=== PATIENT | female | born 1965 | race Caucasian/White ===

== ENCOUNTER 2017-09-24 05:05 | Inpatient (IN) | payer BC ==
[2017-09-24] VITALS (17 sets, daily range): BP systolic 110–143
[~2017-09-24] VITALS: Ht 167.6 cm; Wt 48.1 kg
[2017-09-24 05:49] LABS: BILIRUBIN,URINE NEGATIVE (NEGATIVE); CLARITY/URINE CLEAR (CLEAR); COLOR,URINE YELLOW (YELLOW); GLUCOSE,URINE TRACE (NEGATIVE); KETONES,URINE NEGATIVE (NEGATIVE); LEUKOCYTE ESTERASE ,URINE NEGATIVE (NEGATIVE); NITRITE, URINE NEGATIVE (NEGATIVE); PROTEIN URINE TRACE (NEGATIVE); UROBILINOGEN,URINE 0.2 (0.2-1.0)
[2017-09-24 05:50] LABS: BLOOD, URINE TRACE (NEGATIVE)
[2017-09-24 05:54] LABS: BACTERIA,URINE MODERATE /HPF (None Seen); RBC,URINE 0-3 /HPF (0-3); WBC,URINE 0-3 /HPF (0-3)
[2017-09-24 06:12] LABS: BASOPHILS # (AUTO) 0.2 K/uL (0.0-0.2); EOSINOPHILS % (AUTO) 0.6 % (0.0-4.0); LYMPHOCYTES # (AUTO) 0.4 K/uL (1.0-5.5); MEAN CORPUSCULAR HGB CONC 34 % (32-36); MEAN CORPUSCULAR VOLUME 96 fL (79.0-98.0); MONOCYTES # (AUTO) 0.2 K/uL (0.0-1.0); NEUTROPHILS # (AUTO) 5.5 K/uL (1.8-7.7)
[2017-09-24 06:15] LABS: BASOPHILS % (AUTO) 3.8 % (0.0-2.0); HEMATOCRIT 33.8 % (36-48); HEMOGLOBIN 11.4 g/dL (12.0-16.0); LYMPHOCYTES % (AUTO) 6.5 % (20.5-51.5); MEAN CORPUSCULAR HEMOGLOBIN 33 pg (27-31); MONOCYTES % (AUTO) 3.1 % (1.7-9.3); RED BLOOD CELL COUNT(AUTO) 3.51 MIL/uL (4.2-6.2); RED CELL DISTRIBUTION WIDTH 19.9 % (9.0-15.0); WHITE BLOOD COUNT (AUTO) 6.4 K/uL (4.8-10.8)
[2017-09-24 06:21] LABS: CALCIUM 8.9 mg/dL (8.4-11.0); CREATININE 0.22 mg/dL (0.55-1.30); POTASSIUM 3.7 mmol/L (3.5-5.1)
[2017-09-24 06:36] LABS: ALBUMIN 2.6 g/dL (3.4-4.8)
[2017-09-24 06:38] LABS: PLATELET COUNT (AUTO) 89 K/uL (130-430)
[2017-09-24] MEDS ORDERED: ATOV750O4 PEG (07:23)
[2017-09-24] MEDS ORDERED: PANT40SU2 PEG (07:23)
[2017-09-24] MEDS ORDERED: SACC250C3 PEG (07:23)
[2017-09-24] MEDS ORDERED: ENAL5TAB85 PEG (07:23)
[2017-09-24] MEDS ORDERED: SYN75 PEG (07:23)
[2017-09-24] MEDS ORDERED: LACO100T2 PEG (07:23)
[2017-09-24] MEDS ORDERED: [UNRECOGNIZED DRUG - CODE] PEG (07:23)
[2017-09-24] MEDS ORDERED: POTA20PA3 PEG (07:23)
[2017-09-24] MEDS ORDERED: LEVE1000 PEG (07:23)
[2017-09-24] MEDS ORDERED: IPRA3AMP9 INH (07:23)
[2017-09-24] MEDS ORDERED: ACYC200P PEG (07:23)
[2017-09-24] MEDS ORDERED: ONDA4TAB5 PEG (07:23)
[2017-09-24] MEDS ORDERED: NACL 0.9% 1,000 ML IV ONE (07:45)
[2017-09-24] MEDS ORDERED: PIPERACILLIN/TAZO 3.375 GM in NS 50 ML IV ONE (07:45)
[2017-09-24] MEDS ORDERED: PIPERACILLIN/TAZOBACTAM 3.375 GM/VIAL (ZOSYN) IV ONE (08:12)
[2017-09-24] MEDS ORDERED: IOHEXOL 350 mgI/mL, 150 ML INFUS..BTL IV ONE (08:37)
[2017-09-24] MEDS ORDERED: ENALAPRIL MALEATE 5 MG TABLET (VASOTEC) GT SCH (09:00)
[2017-09-24] MEDS ORDERED: PANTOPRAZOLE GRANULES PACKET 40 MG GT SCH (09:00)
[2017-09-24] MEDS ORDERED: LEVOTHYROXINE SODIUM 0.075 MG TABLET GT ONE (09:00)
[2017-09-24] MEDS ORDERED: ACETAMINOPHEN 650 MG/20.3 ML UDC GT PRN (09:15)
[2017-09-24] MEDS: levETIRAcetam 500 MG TABLET GT SCH ×3 (11:06→20:25)
[2017-09-24] MEDS: LACOSAMIDE 100 MG TABLET GT SCH ×2 (11:06→20:25)
[2017-09-24] MEDS: LACTOBACILLUS RHAMNOSUS GG 1 CAP CAPSULE GT SCH ×2 (11:22→20:25)
[2017-09-24] MEDS: POTASSIUM CHLORIDE 10 MEQ in NACL 0.9% 1,000 ML IV SCH ×2 (13:11→23:41)
[2017-09-24] MEDS: IPRATROPIUM/ALBUTEROL SULFATE 3 ML AMPUL.NEB INH SCH ×2 (13:46→19:42)
[2017-09-24] MEDS ORDERED: HYDROCORTISONE SOD SUCC 100 MG/2 ML VIAL IVP ONE (14:45)
[2017-09-24] MEDS ORDERED: GENTAMICIN 120 mg/100 mL NS 100 ML IV ONE (16:00)
[2017-09-24] MEDS: PIPERACILLIN/TAZO 3.375/DEX-IS 50 ML IV SCH (18:00)
[2017-09-24] MEDS: metroNIDAZOLE 500 mg/NS 100 ML IV SCH (19:46)
[2017-09-24] MEDS: NS IV SCH (20:25)
[2017-09-24] MEDS: VORICONAZOLE IV SCH (20:25)
[2017-09-24] MEDS: ENOXAPARIN SODIUM 60 MG/0.6 ML SYRINGE SUBCUT SCH (20:25)
[2017-09-24] MEDS ORDERED: MORPHINE 2 MG/ML INJ. SYRINGE IVP PRN ×2 (22:00)
[2017-09-24] MEDS ORDERED: ONDANSETRON HCL 4 MG/2 ML VIAL IVP PRN (22:00)
[2017-09-24] MEDS: levETIRAcetam 1,000 MG in NS 100 ML IV SCH (22:00)
[2017-09-24] MEDS ORDERED: ENALAPRILAT DIHYDRATE 1.25 MG/ML VIAL IVP PRN (22:00)
[2017-09-24] MEDS ORDERED: MORPHINE 2 MG/ML INJ. SYRINGE ONE (23:24)
[2017-09-25] VITALS (24 sets, daily range): BP systolic 109–147
[2017-09-25] MEDS: PIPERACILLIN/TAZO 3.375/DEX-IS 50 ML IV SCH ×5 (00:26→23:47)
[2017-09-25] MEDS: IPRATROPIUM/ALBUTEROL SULFATE 3 ML AMPUL.NEB INH SCH ×4 (00:46→19:57)
[2017-09-25] MEDS: metroNIDAZOLE 500 mg/NS 100 ML IV SCH ×3 (01:42→16:47)
[2017-09-25] MEDS: levETIRAcetam 1,000 MG in NS 100 ML IV SCH ×3 (05:13→22:47)
[2017-09-25 05:46] LABS: ANION GAP 8 (5-15); CALCIUM 7.5 mg/dL (8.4-11.0); CHLORIDE 102 mmol/L (98-107); GLUCOSE 100 mg/dL (70-99); SODIUM SERUM 133 mmol/L (136-145); UREA NITROGEN, BLOOD 4 mg/dL (8-21)
[2017-09-25 05:50] LABS: BASOPHILS % (AUTO) 0.1 % (0.0-2.0); EOSINOPHILS % (AUTO) 0.7 % (0.0-4.0); HEMATOCRIT 26.7 % (36-48); HEMOGLOBIN 8.9 g/dL (12.0-16.0); LYMPHOCYTES # (AUTO) 0.2 K/uL (1.0-5.5); LYMPHOCYTES % (AUTO) 2.7 % (20.5-51.5); MEAN CORPUSCULAR HEMOGLOBIN 32 pg (27-31); MEAN CORPUSCULAR HGB CONC 33 % (32-36); MEAN CORPUSCULAR VOLUME 97 fL (79.0-98.0); MONOCYTES # (AUTO) 0.2 K/uL (0.0-1.0); MONOCYTES % (AUTO) 3.1 % (1.7-9.3); NEUTROPHILS # (AUTO) 5.6 K/uL (1.8-7.7); NEUTROPHILS % (AUTO) 93.4 % (40.0-70.0); PLATELET COUNT (AUTO) 68 K/uL (130-430); RED BLOOD CELL COUNT(AUTO) 2.77 MIL/uL (4.2-6.2); RED CELL DISTRIBUTION WIDTH 19.7 % (9.0-15.0)
[2017-09-25 05:53] LABS: ALANINE AMINOTRANSFERASE 24 U/L (12-78); ALBUMIN 1.8 g/dL (3.4-4.8); ASPARTATE AMINOTRANSFERASE 15 U/L (10-37); TOTAL BILIRUBIN 0.7 mg/dL (0.0-1.0)
[2017-09-25 05:57] LABS: CREATININE < 0.20 mg/dL (0.55-1.30); GFR AFRICAN AMERICAN 482 mL/min (>90)
[2017-09-25] MEDS ORDERED: LEVOTHYROXINE SODIUM 0.075 MG TABLET GT SCH (07:00)
[2017-09-25] MEDS: PANTOPRAZOLE SODIUM 40 MG/VIAL (PROTONIX) IVP SCH (08:01)
[2017-09-25] MEDS: ENOXAPARIN SODIUM 60 MG/0.6 ML SYRINGE SUBCUT SCH ×2 (08:01→20:54)
[2017-09-25] MEDS ORDERED: LIDOCAINE JECT IV ONE (08:15)
[2017-09-25] MEDS ORDERED: POTASSIUM CHLORIDE IV ONE (08:15)
[2017-09-25] MEDS ORDERED: NS 0.45% IV ONE (08:15)
[2017-09-25] MEDS: ACETAMINOPHEN 650 MG SUPP.RECT RC PRN ×2 (08:32→20:55)
[2017-09-25] MEDS: POTASSIUM CHLORIDE 10 MEQ in NACL 0.9% 1,000 ML IV SCH ×2 (09:46→22:30)
[2017-09-25] MEDS: VORICONAZOLE IV SCH (10:29)
[2017-09-25] MEDS: NS IV SCH (10:29)
[2017-09-25] MEDS: VORICONAZOLE 200 MG in NS 100 ML IV SCH (20:54)
[2017-09-25] MEDS: HYDROCORTISONE SOD SUCC 100 MG/2 ML VIAL IVP SCH (22:48)
[2017-09-26] VITALS (17 sets, daily range): BP systolic 129–158
[2017-09-26] MEDS: IPRATROPIUM/ALBUTEROL SULFATE 3 ML AMPUL.NEB INH SCH ×4 (01:06→21:28)
[2017-09-26] MEDS: metroNIDAZOLE 500 mg/NS 100 ML IV SCH ×3 (01:10→17:28)
[2017-09-26] MEDS: ACETAMINOPHEN 650 MG SUPP.RECT RC PRN ×2 (03:17→10:19)
[2017-09-26] MEDS: levETIRAcetam 1,000 MG in NS 100 ML IV SCH ×3 (05:47→21:56)
[2017-09-26] MEDS: PIPERACILLIN/TAZO 3.375/DEX-IS 50 ML IV SCH ×3 (05:47→17:34)
[2017-09-26] MEDS: HYDROCORTISONE SOD SUCC 100 MG/2 ML VIAL IVP SCH ×2 (06:47→21:58)
[2017-09-26 07:01] LABS: CREATININE 0.22 mg/dL (0.55-1.30)
[2017-09-26 07:07] LABS: EOSINOPHILS % (AUTO) 0.1 % (0.0-4.0); HEMATOCRIT 27.3 % (36-48); HEMOGLOBIN 9.2 g/dL (12.0-16.0); LYMPHOCYTES # (AUTO) 0.1 K/uL (1.0-5.5); LYMPHOCYTES % (AUTO) 2.1 % (20.5-51.5); MEAN CORPUSCULAR HEMOGLOBIN 33 pg (27-31); MEAN CORPUSCULAR HGB CONC 34 % (32-36); MEAN CORPUSCULAR VOLUME 97 fL (79.0-98.0); MONOCYTES # (AUTO) 0.2 K/uL (0.0-1.0); MONOCYTES % (AUTO) 4.1 % (1.7-9.3); NEUTROPHILS # (AUTO) 4.8 K/uL (1.8-7.7); NEUTROPHILS % (AUTO) 93.7 % (40.0-70.0); PLATELET COUNT (AUTO) 65 K/uL (130-430); RED BLOOD CELL COUNT(AUTO) 2.83 MIL/uL (4.2-6.2); RED CELL DISTRIBUTION WIDTH 19.7 % (9.0-15.0); WHITE BLOOD COUNT (AUTO) 5.1 K/uL (4.8-10.8)
[2017-09-26 07:27] LABS: ALBUMIN 1.9 g/dL (3.4-4.8); TOTAL BILIRUBIN 0.8 mg/dL (0.0-1.0)
[2017-09-26 07:53] LABS: POTASSIUM 2.1 mmol/L (3.5-5.1)
[2017-09-26] MEDS: POTASSIUM CHLORIDE 10 MEQ in NACL 0.9% 1,000 ML IV SCH (09:19)
[2017-09-26] MEDS: PANTOPRAZOLE SODIUM 40 MG/VIAL (PROTONIX) IVP SCH (09:20)
[2017-09-26] MEDS: ENOXAPARIN SODIUM 60 MG/0.6 ML SYRINGE SUBCUT SCH ×2 (09:20→21:56)
[2017-09-26] MEDS: VORICONAZOLE 200 MG in NS 100 ML IV SCH ×2 (10:53→21:55)
[2017-09-26] MEDS ORDERED: POTASSIUM CHLORIDE 40 MEQ, MAGNESIUM SULFATE 2 GM in 0.45% NS 250 ML IV ONE (11:00)
[2017-09-26 19:12] LABS: CREATININE 0.24 mg/dL (0.55-1.30)
[2017-09-26 20:01] LABS: POTASSIUM 2.4 mmol/L (3.5-5.1)
[2017-09-26] MEDS ORDERED: POTASSIUM CHLORIDE 40 MEQ, LIDOCAINE JECT 2% PF 100 MG 50 MG in NS 250 ML IV ONE (21:00)
[2017-09-27] MEDS: PIPERACILLIN/TAZO 3.375/DEX-IS 50 ML IV SCH ×4 (00:08→18:51)
[2017-09-27] MEDS: metroNIDAZOLE 500 mg/NS 100 ML IV SCH ×3 (00:43→17:09)
[2017-09-27 00:53] VITALS: BP_SYST 129
[2017-09-27] MEDS: IPRATROPIUM/ALBUTEROL SULFATE 3 ML AMPUL.NEB INH SCH ×3 (02:14→19:56)
[2017-09-27] MEDS: ACETAMINOPHEN 650 MG SUPP.RECT RC PRN (03:37)
[2017-09-27] MEDS: POTASSIUM CHLORIDE 10 MEQ in NACL 0.9% 1,000 ML IV SCH ×2 (03:54→12:12)
[2017-09-27] MEDS: levETIRAcetam 1,000 MG in NS 100 ML IV SCH ×3 (06:31→22:45)
[2017-09-27 07:55] VITALS: BP_SYST 137
[2017-09-27 07:56] LABS: CALCIUM 8.1 mg/dL (8.4-11.0); CREATININE 0.23 mg/dL (0.55-1.30); EOSINOPHILS % (AUTO) 0.1 % (0.0-4.0); HEMATOCRIT 27.6 % (36-48); HEMOGLOBIN 9.1 g/dL (12.0-16.0); LYMPHOCYTES # (AUTO) 0.1 K/uL (1.0-5.5); LYMPHOCYTES % (AUTO) 1.8 % (20.5-51.5); MEAN CORPUSCULAR HEMOGLOBIN 32 pg (27-31); MEAN CORPUSCULAR HGB CONC 33 % (32-36); MEAN CORPUSCULAR VOLUME 95 fL (79.0-98.0); MONOCYTES # (AUTO) 0.2 K/uL (0.0-1.0); MONOCYTES % (AUTO) 3.1 % (1.7-9.3); NEUTROPHILS # (AUTO) 6.2 K/uL (1.8-7.7); PLATELET COUNT (AUTO) 61 K/uL (130-430); RED CELL DISTRIBUTION WIDTH 19.4 % (9.0-15.0); WHITE BLOOD COUNT (AUTO) 6.5 K/uL (4.8-10.8)
[2017-09-27] MEDS: HYDROCORTISONE SOD SUCC 100 MG/2 ML VIAL IVP SCH ×2 (08:46→21:57)
[2017-09-27] MEDS: PANTOPRAZOLE SODIUM 40 MG/VIAL (PROTONIX) IVP SCH (08:46)
[2017-09-27 08:54] LABS: POTASSIUM 2.8 mmol/L (3.5-5.1)
[2017-09-27] MEDS ORDERED: POTASSIUM CHLORIDE 40 MEQ in NS 250 ML IV ONE (09:30)
[2017-09-27] MEDS ORDERED: *TPN PER PHARMACY XX PRN (09:30)
[2017-09-27] MEDS: VORICONAZOLE 200 MG in NS 100 ML IV SCH ×2 (09:42→21:52)
[2017-09-27] MEDS: ENOXAPARIN SODIUM 60 MG/0.6 ML SYRINGE SUBCUT SCH ×2 (09:52→21:57)
[2017-09-27 15:28] VITALS: BP_SYST 137
[2017-09-27] MEDS: FAT EMULSIONS 250 ML IV SCH (17:06)
[2017-09-27 17:22] VITALS: BP_SYST 135
[2017-09-27] MEDS ORDERED: [UNRECOGNIZED DRUG - OTHER] IV SCH ×10 (18:00)
[2017-09-27] MEDS ORDERED: K PHOS IV SCH ×10 (18:00)
[2017-09-27] MEDS ORDERED: SODIUM CHLORIDE IV SCH ×10 (18:00)
[2017-09-27] MEDS ORDERED: TPN CENTRAL IV SCH ×10 (18:00)
[2017-09-27] MEDS ORDERED: POTASSIUM ACETATE IV SCH ×10 (18:00)
[2017-09-28] MEDS: PIPERACILLIN/TAZO 3.375/DEX-IS 50 ML IV SCH ×4 (00:27→18:28)
[2017-09-28 01:49] VITALS: BP_SYST 145
[2017-09-28] MEDS: metroNIDAZOLE 500 mg/NS 100 ML IV SCH ×3 (01:52→17:29)
[2017-09-28] MEDS: IPRATROPIUM/ALBUTEROL SULFATE 3 ML AMPUL.NEB INH SCH ×4 (01:56→19:28)
[2017-09-28] MEDS: levETIRAcetam 1,000 MG in NS 100 ML IV SCH ×3 (05:13→23:50)
[2017-09-28] MEDS ORDERED: DEXTROSE 50% JECT 50 ML DISP.SYRIN IVP PRN (06:30)
[2017-09-28] MEDS ORDERED: INSULIN REGULAR, HUMAN 100 UNITS/ML, 10 ML VIAL (novoLIN R) SUBCUT PRN (06:30)
[2017-09-28 07:31] LABS: EOSINOPHILS % (AUTO) 0.1 % (0.0-4.0); HEMATOCRIT 26.2 % (36-48); HEMOGLOBIN 9.1 g/dL (12.0-16.0); LYMPHOCYTES # (AUTO) 0.2 K/uL (1.0-5.5); LYMPHOCYTES % (AUTO) 4.4 % (20.5-51.5); MEAN CORPUSCULAR HEMOGLOBIN 33 pg (27-31); MEAN CORPUSCULAR HGB CONC 35 % (32-36); MEAN CORPUSCULAR VOLUME 95 fL (79.0-98.0); MONOCYTES # (AUTO) 0.2 K/uL (0.0-1.0); MONOCYTES % (AUTO) 4.8 % (1.7-9.3); NEUTROPHILS # (AUTO) 3.9 K/uL (1.8-7.7); PLATELET COUNT (AUTO) 70 K/uL (130-430); RED BLOOD CELL COUNT(AUTO) 2.77 MIL/uL (4.2-6.2); RED CELL DISTRIBUTION WIDTH 19.4 % (9.0-15.0); WHITE BLOOD COUNT (AUTO) 4.3 K/uL (4.8-10.8)
[2017-09-28 07:40] VITALS: BP_SYST 135
[2017-09-28 08:28] LABS: ALBUMIN 1.9 g/dL (3.4-4.8)
[2017-09-28 08:37] LABS: CALCIUM 8.2 mg/dL (8.4-11.0); CREATININE 0.22 mg/dL (0.55-1.30)
[2017-09-28 08:42] LABS: PHOSPHORUS 1.5 mg/dL (2.7-4.5); TOTAL BILIRUBIN 0.6 mg/dL (0.0-1.0)
[2017-09-28 08:53] LABS: POTASSIUM 1.7 mmol/L (3.5-5.1)
[2017-09-28] MEDS ORDERED: K PHOS IV SCH ×32 (09:38→10:49)
[2017-09-28] MEDS ORDERED: POTASSIUM ACETATE IV SCH ×32 (09:38→10:49)
[2017-09-28] MEDS ORDERED: SODIUM CHLORIDE IV SCH ×32 (09:38→10:49)
[2017-09-28] MEDS ORDERED: [UNRECOGNIZED DRUG - OTHER] IV SCH ×10 (09:38)
[2017-09-28] MEDS ORDERED: TPN CENTRAL IV SCH ×32 (09:38→10:49)
[2017-09-28] MEDS ORDERED: POTASSIUM CHLORIDE 40 MEQ, LIDOCAINE JECT 2% PF 100 MG 50 MG in NS 250 ML IV ONE (10:00)
[2017-09-28] MEDS: PANTOPRAZOLE SODIUM 40 MG/VIAL (PROTONIX) IVP SCH (10:21)
[2017-09-28] MEDS: HYDROCORTISONE SOD SUCC 100 MG/2 ML VIAL IVP SCH ×2 (10:21→21:09)
[2017-09-28] MEDS: VORICONAZOLE 200 MG in NS 100 ML IV SCH ×2 (10:22→21:08)
[2017-09-28] MEDS: ENOXAPARIN SODIUM 60 MG/0.6 ML SYRINGE SUBCUT SCH ×2 (10:23→21:09)
[2017-09-28] MEDS ORDERED: [UNRECOGNIZED DRUG - OTHER] IV SCH ×22 (10:28→10:49)
[2017-09-28] MEDS: INSULIN ASPART 100 UNITS/ML, 10 ML VIAL (NovoLOG) SUBCUT PRN ×2 (11:51→17:26)
[2017-09-28 12:17] VITALS: BP_SYST 127
[2017-09-28] MEDS: POTASSIUM CHLORIDE 10 MEQ in NACL 0.9% 1,000 ML IV SCH (12:23)
[2017-09-28 12:36] LABS: NEUTROPHILS % (AUTO) 90.7 % (40.0-70.0)
[2017-09-28 16:00] VITALS: BP_SYST 144
[2017-09-28] MEDS: FAT EMULSIONS 250 ML IV SCH (17:30)
[2017-09-28] MEDS: [UNRECOGNIZED DRUG - OTHER] IV SCH ×11 (17:31)
[2017-09-28] MEDS: POTASSIUM ACETATE IV SCH ×11 (17:31)
[2017-09-28] MEDS: SODIUM CHLORIDE IV SCH ×11 (17:31)
[2017-09-28] MEDS: TPN CENTRAL IV SCH ×11 (17:31)
[2017-09-28] MEDS: K PHOS IV SCH ×11 (17:31)
[2017-09-28 20:00] VITALS: BP_SYST 148
[2017-09-28 21:33] LABS: CALCIUM 7.8 mg/dL (8.4-11.0); CREATININE 0.4 mg/dL (0.55-1.30)
[2017-09-28 21:36] LABS: POTASSIUM 2.2 mmol/L (3.5-5.1)
[2017-09-28] MEDS ORDERED: POTASSIUM CHLORIDE 40 MEQ, MAGNESIUM SULFATE 2 GM in 0.45% NS 250 ML IV ONE (21:45)
[2017-09-28] MEDS ORDERED: MAGNESIUM SULFATE 50 ML IV ONE (21:57)
[2017-09-28] MEDS ORDERED: KCL 40 mEq in 100 mL (PREMIX) 100 ML IV ONE (21:58)
[2017-09-29] MEDS: INSULIN ASPART 100 UNITS/ML, 10 ML VIAL (NovoLOG) SUBCUT PRN ×4 (00:07→17:47)
[2017-09-29 00:13] VITALS: BP_SYST 154
[2017-09-29] MEDS: PIPERACILLIN/TAZO 3.375/DEX-IS 50 ML IV SCH ×3 (00:55→11:16)
[2017-09-29] MEDS: IPRATROPIUM/ALBUTEROL SULFATE 3 ML AMPUL.NEB INH SCH ×4 (01:56→19:36)
[2017-09-29] MEDS: metroNIDAZOLE 500 mg/NS 100 ML IV SCH ×3 (02:27→16:46)
[2017-09-29 04:00] VITALS: BP_SYST 146
[2017-09-29] MEDS: levETIRAcetam 1,000 MG in NS 100 ML IV SCH ×3 (04:59→23:48)
[2017-09-29 07:10] LABS: BASOPHILS % (AUTO) 0.3 % (0.0-2.0); EOSINOPHILS % (AUTO) 0.3 % (0.0-4.0); HEMOGLOBIN 9.7 g/dL (12.0-16.0); LYMPHOCYTES # (AUTO) 0.2 K/uL (1.0-5.5); LYMPHOCYTES % (AUTO) 4.8 % (20.5-51.5); MEAN CORPUSCULAR HEMOGLOBIN 33 pg (27-31); MEAN CORPUSCULAR HGB CONC 35 % (32-36); MEAN CORPUSCULAR VOLUME 95 fL (79.0-98.0); MONOCYTES # (AUTO) 0.5 K/uL (0.0-1.0); MONOCYTES % (AUTO) 10.1 % (1.7-9.3); NEUTROPHILS # (AUTO) 3.8 K/uL (1.8-7.7); PLATELET COUNT (AUTO) 55 K/uL (130-430); RED BLOOD CELL COUNT(AUTO) 2.95 MIL/uL (4.2-6.2); RED CELL DISTRIBUTION WIDTH 19.2 % (9.0-15.0); WHITE BLOOD COUNT (AUTO) 4.5 K/uL (4.8-10.8)
[2017-09-29 07:53] LABS: CALCIUM 7.6 mg/dL (8.4-11.0); CREATININE 0.21 mg/dL (0.55-1.30)
[2017-09-29 08:00] VITALS: BP_SYST 146
[2017-09-29 08:05] LABS: POTASSIUM 2.9 mmol/L (3.5-5.1)
[2017-09-29] MEDS: PANTOPRAZOLE SODIUM 40 MG/VIAL (PROTONIX) IVP SCH (09:01)
[2017-09-29] MEDS: HYDROCORTISONE SOD SUCC 100 MG/2 ML VIAL IVP SCH ×2 (09:01→23:47)
[2017-09-29] MEDS: VORICONAZOLE 200 MG in NS 100 ML IV SCH ×2 (09:01→23:48)
[2017-09-29] MEDS: ENOXAPARIN SODIUM 60 MG/0.6 ML SYRINGE SUBCUT SCH ×2 (09:01→23:47)
[2017-09-29] MEDS ORDERED: POTASSIUM CHLORIDE 40 MEQ in NS 250 ML IV ONE (11:00)
[2017-09-29 13:38] VITALS: BP_SYST 158
[2017-09-29 13:57] LABS: NEUTROPHILS % (AUTO) 84.5 % (40.0-70.0)
[2017-09-29] MEDS: ENALAPRILAT DIHYDRATE 1.25 MG/ML VIAL IVP PRN ×2 (14:17→18:47)
[2017-09-29 16:42] VITALS: BP_SYST 164
[2017-09-29] MEDS: FAT EMULSIONS 250 ML IV SCH (17:11)
[2017-09-29] MEDS: PIPERACILLIN/TAZOBACTAM 2.25 GM in NS 50 ML IV SCH (17:12)
[2017-09-29] MEDS: K PHOS IV SCH ×11 (17:35)
[2017-09-29] MEDS: SODIUM CHLORIDE IV SCH ×11 (17:35)
[2017-09-29] MEDS: POTASSIUM ACETATE IV SCH ×11 (17:35)
[2017-09-29] MEDS: TPN CENTRAL IV SCH ×11 (17:35)
[2017-09-29] MEDS: [UNRECOGNIZED DRUG - OTHER] IV SCH ×11 (17:35)
[2017-09-29 20:00] VITALS: BP_SYST 149
[2017-09-29 23:34] LABS: CALCIUM 7.7 mg/dL (8.4-11.0); CREATININE 0.2 mg/dL (0.55-1.30)
[2017-09-29 23:55] LABS: POTASSIUM 2.8 mmol/L (3.5-5.1)
[2017-09-30] VITALS (8 sets, daily range): BP systolic 128–165
[2017-09-30] MEDS: metroNIDAZOLE 500 mg/NS 100 ML IV SCH ×3 (00:52→17:11)
[2017-09-30] MEDS: PIPERACILLIN/TAZOBACTAM 2.25 GM in NS 50 ML IV SCH ×4 (00:52→18:19)
[2017-09-30] MEDS: INSULIN ASPART 100 UNITS/ML, 10 ML VIAL (NovoLOG) SUBCUT PRN ×4 (00:54→17:12)
[2017-09-30] MEDS: IPRATROPIUM/ALBUTEROL SULFATE 3 ML AMPUL.NEB INH SCH ×4 (01:38→19:13)
[2017-09-30] MEDS ORDERED: POTASSIUM CHLORIDE 30 MEQ in NS 250 ML IV ONE ×2 (01:45→12:45)
[2017-09-30] MEDS ORDERED: KCL 40 mEq in 100 mL (PREMIX) 100 ML IV ONE (01:52)
[2017-09-30] MEDS: levETIRAcetam 1,000 MG in NS 100 ML IV SCH ×3 (05:10→23:03)
[2017-09-30 08:00] LABS: CALCIUM 7.7 mg/dL (8.4-11.0); CREATININE 0.25 mg/dL (0.55-1.30); POTASSIUM 3.4 mmol/L (3.5-5.1)
[2017-09-30 08:40] LABS: PHOSPHORUS 1.6 mg/dL (2.7-4.5)
[2017-09-30 08:43] LABS: BASOPHILS % (AUTO) 0.4 % (0.0-2.0); EOSINOPHILS % (AUTO) 0.2 % (0.0-4.0); HEMATOCRIT 29.3 % (36-48); HEMOGLOBIN 9.7 g/dL (12.0-16.0); LYMPHOCYTES # (AUTO) 0.3 K/uL (1.0-5.5); LYMPHOCYTES % (AUTO) 4.3 % (20.5-51.5); MEAN CORPUSCULAR HEMOGLOBIN 32 pg (27-31); MEAN CORPUSCULAR HGB CONC 33 % (32-36); MEAN CORPUSCULAR VOLUME 97 fL (79.0-98.0); MONOCYTES # (AUTO) 0.2 K/uL (0.0-1.0); MONOCYTES % (AUTO) 3.4 % (1.7-9.3); NEUTROPHILS # (AUTO) 5.9 K/uL (1.8-7.7); NEUTROPHILS % (AUTO) 91.7 % (40.0-70.0); PLATELET COUNT (AUTO) 52 K/uL (130-430); RED BLOOD CELL COUNT(AUTO) 3.03 MIL/uL (4.2-6.2); RED CELL DISTRIBUTION WIDTH 20.1 % (9.0-15.0); WHITE BLOOD COUNT (AUTO) 6.4 K/uL (4.8-10.8)
[2017-09-30] MEDS: PANTOPRAZOLE SODIUM 40 MG/VIAL (PROTONIX) IVP SCH (09:09)
[2017-09-30] MEDS: HYDROCORTISONE SOD SUCC 100 MG/2 ML VIAL IVP SCH ×2 (09:10→21:55)
[2017-09-30] MEDS: ENOXAPARIN SODIUM 60 MG/0.6 ML SYRINGE SUBCUT SCH ×2 (09:12→21:58)
[2017-09-30] MEDS: VORICONAZOLE 200 MG in NS 100 ML IV SCH ×3 (09:13→21:59)
[2017-09-30] MEDS: ENALAPRILAT DIHYDRATE 1.25 MG/ML VIAL IVP PRN ×2 (09:24→18:44)
[2017-09-30] MEDS ORDERED: IPRATROPIUM/ALBUTEROL SULFATE 3 ML AMPUL.NEB ONE (10:30)
[2017-09-30] MEDS: FAT EMULSIONS 250 ML IV SCH (16:39)
[2017-09-30] MEDS ORDERED: [UNRECOGNIZED DRUG - OTHER] IV SCH ×11 (18:00)
[2017-09-30] MEDS ORDERED: TPN CENTRAL IV SCH ×11 (18:00)
[2017-09-30] MEDS ORDERED: POTASSIUM ACETATE IV SCH ×11 (18:00)
[2017-09-30] MEDS ORDERED: K PHOS IV SCH ×11 (18:00)
[2017-09-30] MEDS ORDERED: SODIUM CHLORIDE IV SCH ×11 (18:00)
[2017-10-01] MEDS: PIPERACILLIN/TAZOBACTAM 2.25 GM in NS 50 ML IV SCH ×3 (00:18→11:02)
[2017-10-01] MEDS: INSULIN ASPART 100 UNITS/ML, 10 ML VIAL (NovoLOG) SUBCUT PRN ×5 (00:21→23:24)
[2017-10-01] MEDS: IPRATROPIUM/ALBUTEROL SULFATE 3 ML AMPUL.NEB INH SCH ×4 (01:08→20:54)
[2017-10-01 01:09] VITALS: BP_SYST 158
[2017-10-01] MEDS: metroNIDAZOLE 500 mg/NS 100 ML IV SCH (01:33)
[2017-10-01 01:35] VITALS: BP_SYST 158
[2017-10-01] MEDS: levETIRAcetam 1,000 MG in NS 100 ML IV SCH ×2 (05:15→14:14)
[2017-10-01] MEDS: ENALAPRILAT DIHYDRATE 1.25 MG/ML VIAL IVP PRN ×2 (06:10→15:08)
[2017-10-01 08:00] VITALS: BP_SYST 146
[2017-10-01 08:31] LABS: EOSINOPHILS % (AUTO) 0.2 % (0.0-4.0); HEMATOCRIT 27.3 % (36-48); HEMOGLOBIN 9.3 g/dL (12.0-16.0); LYMPHOCYTES # (AUTO) 0.3 K/uL (1.0-5.5); LYMPHOCYTES % (AUTO) 4.7 % (20.5-51.5); MEAN CORPUSCULAR HEMOGLOBIN 32 pg (27-31); MEAN CORPUSCULAR HGB CONC 34 % (32-36); MEAN CORPUSCULAR VOLUME 95 fL (79.0-98.0); MONOCYTES # (AUTO) 0.2 K/uL (0.0-1.0); MONOCYTES % (AUTO) 3.8 % (1.7-9.3); NEUTROPHILS # (AUTO) 6.1 K/uL (1.8-7.7); NEUTROPHILS % (AUTO) 91.3 % (40.0-70.0); RED BLOOD CELL COUNT(AUTO) 2.87 MIL/uL (4.2-6.2); RED CELL DISTRIBUTION WIDTH 19.5 % (9.0-15.0); WHITE BLOOD COUNT (AUTO) 6.6 K/uL (4.8-10.8)
[2017-10-01] MEDS: HYDROCORTISONE SOD SUCC 100 MG/2 ML VIAL IVP SCH ×2 (08:45→23:17)
[2017-10-01] MEDS: ENOXAPARIN SODIUM 60 MG/0.6 ML SYRINGE SUBCUT SCH ×2 (08:46→23:18)
[2017-10-01] MEDS: PANTOPRAZOLE SODIUM 40 MG/VIAL (PROTONIX) IVP SCH (08:46)
[2017-10-01] MEDS: VORICONAZOLE 200 MG in NS 100 ML IV SCH (08:47)
[2017-10-01 09:32] LABS: PLATELET COUNT (AUTO) 39 K/uL (130-430)
[2017-10-01 11:17] LABS: ALBUMIN 1.8 g/dL (3.4-4.8); BILIRUBIN,DIRECT 0.1 mg/dL (0.0-0.3); CALCIUM 8.1 mg/dL (8.4-11.0); CREATININE 0.26 mg/dL (0.55-1.30); TOTAL BILIRUBIN 0.5 mg/dL (0.0-1.0)
[2017-10-01 11:26] VITALS: BP_SYST 157
[2017-10-01 11:37] LABS: POTASSIUM 2.8 mmol/L (3.5-5.1)
[2017-10-01] MEDS: IPRATROPIUM BROM 0.5 MG/2.5 ML VIAL.NEB (ATROVENT) INH PRN (11:57)
[2017-10-01] MEDS: ALBUTEROL SULFATE 0.083% 2.5 MG/3 ML VIAL.NEB INH PRN (11:57)
[2017-10-01] MEDS ORDERED: POTASSIUM CHLORIDE 40 MEQ, LIDOCAINE JECT 2% PF 100 MG 50 MG in NS 250 ML IV ONE (12:15)
[2017-10-01] MEDS: ACETAMINOPHEN 650 MG SUPP.RECT RC PRN ×2 (15:07→23:20)
[2017-10-01 15:32] VITALS: BP_SYST 155
[2017-10-01] MEDS ORDERED: [UNRECOGNIZED DRUG - OTHER] IV SCH ×11 (18:00)
[2017-10-01] MEDS ORDERED: TPN CENTRAL IV SCH ×11 (18:00)
[2017-10-01] MEDS ORDERED: SODIUM CHLORIDE IV SCH ×11 (18:00)
[2017-10-01] MEDS ORDERED: POTASSIUM ACETATE IV SCH ×11 (18:00)
[2017-10-01] MEDS: FAT EMULSIONS 250 ML IV SCH (18:20)
[2017-10-01] MEDS: CEFEPIME 2 GM in D5W 100 ML IV SCH (23:05)
[2017-10-02] VITALS: BP_SYST 154
[2017-10-02] MEDS: ENALAPRILAT DIHYDRATE 1.25 MG/ML VIAL IVP PRN ×4 (00:24→20:48)
[2017-10-02] MEDS: metroNIDAZOLE 500 mg/NS 100 ML IV SCH ×3 (00:30→20:48)
[2017-10-02] MEDS: IPRATROPIUM/ALBUTEROL SULFATE 3 ML AMPUL.NEB INH SCH ×4 (01:32→20:14)
[2017-10-02] MEDS: levETIRAcetam 1,000 MG in NS 100 ML IV SCH ×3 (02:07→15:26)
[2017-10-02] MEDS: VORICONAZOLE 200 MG in NS 100 ML IV SCH ×3 (02:47→22:23)
[2017-10-02] MEDS: INSULIN ASPART 100 UNITS/ML, 10 ML VIAL (NovoLOG) SUBCUT PRN ×3 (05:12→18:59)
[2017-10-02 08:04] VITALS: BP_SYST 155
[2017-10-02 08:17] LABS: CALCIUM 8.2 mg/dL (8.4-11.0); CREATININE 0.29 mg/dL (0.55-1.30)
[2017-10-02 08:51] LABS: PHOSPHORUS 2.2 mg/dL (2.7-4.5)
[2017-10-02] MEDS: HYDROCORTISONE SOD SUCC 100 MG/2 ML VIAL IVP SCH ×2 (10:33→20:55)
[2017-10-02] MEDS: PANTOPRAZOLE SODIUM 40 MG/VIAL (PROTONIX) IVP SCH (10:33)
[2017-10-02] MEDS: CEFEPIME 2 GM in D5W 100 ML IV SCH ×2 (10:33→22:18)
[2017-10-02] MEDS: ENOXAPARIN SODIUM 60 MG/0.6 ML SYRINGE SUBCUT SCH ×2 (10:34→20:56)
[2017-10-02] MEDS ORDERED: POTASSIUM CHLORIDE 40 MEQ, LIDOCAINE JECT 2% PF 100 MG 50 MG in NS 250 ML IV ONE (11:15)
[2017-10-02 12:11] LABS: BASOPHILS % (AUTO) 0.4 % (0.0-2.0); EOSINOPHILS % (AUTO) 0.2 % (0.0-4.0); HEMATOCRIT 26.5 % (36-48); HEMOGLOBIN 8.7 g/dL (12.0-16.0); LYMPHOCYTES # (AUTO) 0.3 K/uL (1.0-5.5); LYMPHOCYTES % (AUTO) 3.7 % (20.5-51.5); MEAN CORPUSCULAR HEMOGLOBIN 32 pg (27-31); MEAN CORPUSCULAR HGB CONC 33 % (32-36); MEAN CORPUSCULAR VOLUME 98 fL (79.0-98.0); MONOCYTES # (AUTO) 0.1 K/uL (0.0-1.0); MONOCYTES % (AUTO) 1.3 % (1.7-9.3); NEUTROPHILS # (AUTO) 7.1 K/uL (1.8-7.7); NEUTROPHILS % (AUTO) 94.4 % (40.0-70.0); PLATELET COUNT (AUTO) 107 K/uL (130-430); RED BLOOD CELL COUNT(AUTO) 2.72 MIL/uL (4.2-6.2); RED CELL DISTRIBUTION WIDTH 20.3 % (9.0-15.0); WHITE BLOOD COUNT (AUTO) 7.5 K/uL (4.8-10.8)
[2017-10-02] MEDS: LORazepam 2 MG/ML VIAL IVP PRN (12:30)
[2017-10-02 12:41] VITALS: BP_SYST 152
[2017-10-02] MEDS: ALBUTEROL SULFATE 0.083% 2.5 MG/3 ML VIAL.NEB INH PRN (12:58)
[2017-10-02] MEDS: IPRATROPIUM BROM 0.5 MG/2.5 ML VIAL.NEB (ATROVENT) INH PRN (12:58)
[2017-10-02 14:20] VITALS: BP_SYST 154
[2017-10-02] MEDS: ACETAMINOPHEN 650 MG SUPP.RECT RC PRN (15:05)
[2017-10-02 16:57] VITALS: BP_SYST 143
[2017-10-02] MEDS ORDERED: SODIUM CHLORIDE IV SCH ×11 (18:00)
[2017-10-02] MEDS ORDERED: TPN CENTRAL IV SCH ×11 (18:00)
[2017-10-02] MEDS ORDERED: [UNRECOGNIZED DRUG - OTHER] IV SCH ×11 (18:00)
[2017-10-02] MEDS ORDERED: POTASSIUM ACETATE IV SCH ×11 (18:00)
[2017-10-02] MEDS: FAT EMULSIONS 250 ML IV SCH (18:30)
[2017-10-02 20:00] VITALS: BP_SYST 159
[2017-10-02] MEDS: ACETYLCYSTEINE 20% 4 ML VIAL (RT) INH SCH (20:14)
[2017-10-03] MEDS: levETIRAcetam 1,000 MG in NS 100 ML IV SCH ×4 (00:03→23:50)
[2017-10-03] MEDS: INSULIN ASPART 100 UNITS/ML, 10 ML VIAL (NovoLOG) SUBCUT PRN ×4 (00:17→18:33)
[2017-10-03 01:03] VITALS: BP_SYST 143
[2017-10-03] MEDS: IPRATROPIUM/ALBUTEROL SULFATE 3 ML AMPUL.NEB INH SCH ×4 (02:42→20:25)
[2017-10-03 06:39] LABS: EOSINOPHILS % (AUTO) 0.8 % (0.0-4.0); HEMATOCRIT 25.8 % (36-48); HEMOGLOBIN 9.4 g/dL (12.0-16.0); LYMPHOCYTES # (AUTO) 0.3 K/uL (1.0-5.5); LYMPHOCYTES % (AUTO) 6.1 % (20.5-51.5); MEAN CORPUSCULAR HEMOGLOBIN 43 pg (27-31); MEAN CORPUSCULAR HGB CONC 36 % (32-36); MEAN CORPUSCULAR VOLUME 118 fL (79.0-98.0); MONOCYTES # (AUTO) 0.2 K/uL (0.0-1.0); MONOCYTES % (AUTO) 4.1 % (1.7-9.3); NEUTROPHILS # (AUTO) 3.7 K/uL (1.8-7.7); PLATELET COUNT (AUTO) 62 K/uL (130-430); RED BLOOD CELL COUNT(AUTO) 2.18 MIL/uL (4.2-6.2); WHITE BLOOD COUNT (AUTO) 4.2 K/uL (4.8-10.8)
[2017-10-03 07:42] VITALS: BP_SYST 152
[2017-10-03] MEDS: ACETYLCYSTEINE 20% 4 ML VIAL (RT) INH SCH ×3 (07:43→21:15)
[2017-10-03] MEDS: PANTOPRAZOLE SODIUM 40 MG/VIAL (PROTONIX) IVP SCH (08:10)
[2017-10-03] MEDS: ENOXAPARIN SODIUM 60 MG/0.6 ML SYRINGE SUBCUT SCH ×2 (08:11→20:23)
[2017-10-03] MEDS: HYDROCORTISONE SOD SUCC 100 MG/2 ML VIAL IVP SCH ×2 (08:11→20:22)
[2017-10-03] MEDS: metroNIDAZOLE 500 mg/NS 100 ML IV SCH (08:11)
[2017-10-03] MEDS ORDERED: cloNIDine HCL 0.1 MG/24 HR PATCH.TDWK TD SCH (09:00)
[2017-10-03] MEDS: VORICONAZOLE 200 MG in NS 100 ML IV SCH ×2 (09:13→20:23)
[2017-10-03] MEDS: ENALAPRILAT DIHYDRATE 1.25 MG/ML VIAL IVP PRN ×2 (10:39→18:40)
[2017-10-03] MEDS: CEFEPIME 2 GM in D5W 100 ML IV SCH ×2 (10:39→21:54)
[2017-10-03 10:46] LABS: CALCIUM 8.3 mg/dL (8.4-11.0); CREATININE 0.24 mg/dL (0.55-1.30)
[2017-10-03 10:58] LABS: POTASSIUM 2.9 mmol/L (3.5-5.1)
[2017-10-03] MEDS ORDERED: POTASSIUM CHLORIDE 40 MEQ, LIDOCAINE JECT 2% PF 100 MG 50 MG in NS 250 ML IV ONE (11:15)
[2017-10-03 12:37] VITALS: BP_SYST 153
[2017-10-03] MEDS: METOPROLOL TARTRATE 5 MG/5 ML VIAL IVP PRN ×2 (13:30→20:42)
[2017-10-03 16:37] VITALS: BP_SYST 148
[2017-10-03 16:51] VITALS: BP_SYST 148
[2017-10-03] MEDS: FAT EMULSIONS 250 ML IV SCH (17:42)
[2017-10-03] MEDS: TPN CENTRAL IV SCH ×11 (17:44)
[2017-10-03] MEDS: SODIUM CHLORIDE IV SCH ×11 (17:44)
[2017-10-03] MEDS: POTASSIUM ACETATE IV SCH ×11 (17:44)
[2017-10-03] MEDS: [UNRECOGNIZED DRUG - OTHER] IV SCH ×11 (17:44)
[2017-10-03] MEDS: ACETAMINOPHEN 650 MG SUPP.RECT RC PRN (18:02)
[2017-10-03 18:55] LABS: CALCIUM 8.4 mg/dL (8.4-11.0); CREATININE 0.31 mg/dL (0.55-1.30); POTASSIUM 3.9 mmol/L (3.5-5.1)
[2017-10-03 20:00] VITALS: BP_SYST 161
[2017-10-04] VITALS: BP_SYST 147
[2017-10-04] MEDS: INSULIN ASPART 100 UNITS/ML, 10 ML VIAL (NovoLOG) SUBCUT PRN ×4 (00:02→17:57)
[2017-10-04] MEDS: ENALAPRILAT DIHYDRATE 1.25 MG/ML VIAL IVP PRN ×3 (00:31→19:16)
[2017-10-04] MEDS: metroNIDAZOLE 500 mg/NS 100 ML IV SCH ×3 (01:13→20:49)
[2017-10-04] MEDS: IPRATROPIUM/ALBUTEROL SULFATE 3 ML AMPUL.NEB INH SCH ×4 (02:11→20:12)
[2017-10-04] MEDS: levETIRAcetam 1,000 MG in NS 100 ML IV SCH ×3 (05:36→23:07)
[2017-10-04] MEDS: ACETYLCYSTEINE 20% 4 ML VIAL (RT) INH SCH ×2 (07:19→17:14)
[2017-10-04] MEDS: METOPROLOL TARTRATE 5 MG/5 ML VIAL IVP PRN ×2 (07:52→22:09)
[2017-10-04 07:53] LABS: EOSINOPHILS % (AUTO) 0.5 % (0.0-4.0); HEMATOCRIT 26.4 % (36-48); LYMPHOCYTES # (AUTO) 0.4 K/uL (1.0-5.5); LYMPHOCYTES % (AUTO) 8.7 % (20.5-51.5); MEAN CORPUSCULAR HEMOGLOBIN 33 pg (27-31); MEAN CORPUSCULAR HGB CONC 34 % (32-36); MEAN CORPUSCULAR VOLUME 97 fL (79.0-98.0); MONOCYTES # (AUTO) 0.2 K/uL (0.0-1.0); MONOCYTES % (AUTO) 4.4 % (1.7-9.3); NEUTROPHILS # (AUTO) 4.4 K/uL (1.8-7.7); NEUTROPHILS % (AUTO) 86.4 % (40.0-70.0); PLATELET COUNT (AUTO) 50 K/uL (130-430); RED BLOOD CELL COUNT(AUTO) 2.72 MIL/uL (4.2-6.2); RED CELL DISTRIBUTION WIDTH 20.1 % (9.0-15.0)
[2017-10-04] MEDS: CEFEPIME 2 GM in D5W 100 ML IV SCH ×2 (07:56→21:51)
[2017-10-04 08:06] LABS: CREATININE 0.3 mg/dL (0.55-1.30); POTASSIUM 3.2 mmol/L (3.5-5.1)
[2017-10-04] MEDS: ENOXAPARIN SODIUM 60 MG/0.6 ML SYRINGE SUBCUT SCH ×2 (08:50→21:57)
[2017-10-04] MEDS: VORICONAZOLE 200 MG in NS 100 ML IV SCH (08:50)
[2017-10-04] MEDS: PANTOPRAZOLE SODIUM 40 MG/VIAL (PROTONIX) IVP SCH (08:50)
[2017-10-04] MEDS: HYDROCORTISONE SOD SUCC 100 MG/2 ML VIAL IVP SCH ×2 (08:50→21:55)
[2017-10-04 09:04] VITALS: BP_SYST 147
[2017-10-04 11:28] VITALS: BP_SYST 144
[2017-10-04] MEDS ORDERED: POTASSIUM CHLORIDE 40 MEQ, LIDOCAINE JECT 2% PF 100 MG 50 MG in NS 250 ML IV ONE (11:45)
[2017-10-04 12:00] VITALS: BP_SYST 136
[2017-10-04 15:28] VITALS: BP_SYST 138
[2017-10-04] MEDS: FAT EMULSIONS 250 ML IV SCH (18:00)
[2017-10-04] MEDS: [UNRECOGNIZED DRUG - OTHER] IV SCH ×11 (18:02)
[2017-10-04] MEDS: TPN CENTRAL IV SCH ×11 (18:02)
[2017-10-04] MEDS: SODIUM CHLORIDE IV SCH ×11 (18:02)
[2017-10-04] MEDS: POTASSIUM ACETATE IV SCH ×11 (18:02)
[2017-10-04 18:12] LABS: CALCIUM 8.1 mg/dL (8.4-11.0); CREATININE 0.2 mg/dL (0.55-1.30); POTASSIUM 4.4 mmol/L (3.5-5.1)
[2017-10-04 19:55] VITALS: BP_SYST 145
[2017-10-05] MEDS: VORICONAZOLE 200 MG in NS 100 ML IV SCH ×3 (00:17→10:50)
[2017-10-05] MEDS: INSULIN ASPART 100 UNITS/ML, 10 ML VIAL (NovoLOG) SUBCUT PRN ×4 (00:29→17:31)
[2017-10-05 01:41] VITALS: BP_SYST 151
[2017-10-05] MEDS: IPRATROPIUM/ALBUTEROL SULFATE 3 ML AMPUL.NEB INH SCH ×2 (02:07→07:25)
[2017-10-05] MEDS: ACETYLCYSTEINE 20% 4 ML VIAL (RT) INH SCH ×2 (02:10→07:25)
[2017-10-05] MEDS: METOPROLOL TARTRATE 5 MG/5 ML VIAL IVP PRN ×3 (04:28→21:07)
[2017-10-05] MEDS: ENALAPRILAT DIHYDRATE 1.25 MG/ML VIAL IVP PRN (05:26)
[2017-10-05] MEDS: levETIRAcetam 1,000 MG in NS 100 ML IV SCH ×2 (06:32→14:13)
[2017-10-05 07:08] LABS: BASOPHILS % (AUTO) 0.3 % (0.0-2.0); EOSINOPHILS % (AUTO) 0.4 % (0.0-4.0); HEMATOCRIT 26.7 % (36-48); HEMOGLOBIN 9.1 g/dL (12.0-16.0); LYMPHOCYTES # (AUTO) 0.6 K/uL (1.0-5.5); MEAN CORPUSCULAR HEMOGLOBIN 33 pg (27-31); MEAN CORPUSCULAR HGB CONC 34 % (32-36); MEAN CORPUSCULAR VOLUME 97 fL (79.0-98.0); MONOCYTES # (AUTO) 0.2 K/uL (0.0-1.0); MONOCYTES % (AUTO) 4.6 % (1.7-9.3); NEUTROPHILS # (AUTO) 4.1 K/uL (1.8-7.7); NEUTROPHILS % (AUTO) 82.7 % (40.0-70.0); PLATELET COUNT (AUTO) 50 K/uL (130-430); RED BLOOD CELL COUNT(AUTO) 2.75 MIL/uL (4.2-6.2); RED CELL DISTRIBUTION WIDTH 20.2 % (9.0-15.0); WHITE BLOOD COUNT (AUTO) 4.9 K/uL (4.8-10.8)
[2017-10-05 08:02] VITALS: BP_SYST 147
[2017-10-05] MEDS: HYDROCORTISONE SOD SUCC 100 MG/2 ML VIAL IVP SCH ×2 (08:38→21:57)
[2017-10-05] MEDS: PANTOPRAZOLE SODIUM 40 MG/VIAL (PROTONIX) IVP SCH (08:38)
[2017-10-05] MEDS: ENOXAPARIN SODIUM 60 MG/0.6 ML SYRINGE SUBCUT SCH ×2 (08:39→21:57)
[2017-10-05] MEDS: CEFEPIME 2 GM in D5W 100 ML IV SCH ×3 (08:40→23:50)
[2017-10-05] MEDS: metroNIDAZOLE 500 mg/NS 100 ML IV SCH ×2 (08:40→21:05)
[2017-10-05 09:52] LABS: CALCIUM 8.1 mg/dL (8.4-11.0); POTASSIUM 3.6 mmol/L (3.5-5.1)
[2017-10-05 09:53] LABS: ALBUMIN 2.3 g/dL (3.4-4.8); CREATININE 0.32 mg/dL (0.55-1.30); PHOSPHORUS 2.5 mg/dL (2.7-4.5); TOTAL BILIRUBIN 0.4 mg/dL (0.0-1.0)
[2017-10-05] MEDS: ACETAMINOPHEN 650 MG SUPP.RECT RC PRN (11:48)
[2017-10-05 16:00] VITALS: BP_SYST 140; BP_SYST 143
[2017-10-05] MEDS: FAT EMULSIONS 250 ML IV SCH (17:30)
[2017-10-05] MEDS: SODIUM CHLORIDE IV SCH ×11 (17:52)
[2017-10-05] MEDS: TPN CENTRAL IV SCH ×11 (17:52)
[2017-10-05] MEDS: [UNRECOGNIZED DRUG - OTHER] IV SCH ×11 (17:52)
[2017-10-05] MEDS: POTASSIUM ACETATE IV SCH ×11 (17:52)
[2017-10-05 20:10] VITALS: BP_SYST 145
[2017-10-06] MEDS: INSULIN ASPART 100 UNITS/ML, 10 ML VIAL (NovoLOG) SUBCUT PRN ×4 (00:02→17:38)
[2017-10-06] MEDS: ACETYLCYSTEINE 20% 4 ML VIAL (RT) INH SCH ×4 (00:49→21:02)
[2017-10-06] MEDS: IPRATROPIUM/ALBUTEROL SULFATE 3 ML AMPUL.NEB INH SCH ×5 (00:50→19:38)
[2017-10-06 00:55] VITALS: BP_SYST 132
[2017-10-06] MEDS: levETIRAcetam 1,000 MG in NS 100 ML IV SCH ×3 (01:44→14:13)
[2017-10-06] MEDS: VORICONAZOLE 200 MG in NS 100 ML IV SCH ×3 (01:44→22:07)
[2017-10-06] MEDS: LORazepam 2 MG/ML VIAL IVP PRN (02:28)
[2017-10-06 04:00] VITALS: BP_SYST 146
[2017-10-06 08:07] VITALS: BP_SYST 145
[2017-10-06 08:16] LABS: CALCIUM 8.7 mg/dL (8.4-11.0); CREATININE 0.28 mg/dL (0.55-1.30); PHOSPHORUS 2.8 mg/dL (2.7-4.5); POTASSIUM 3.6 mmol/L (3.5-5.1)
[2017-10-06] MEDS: ENOXAPARIN SODIUM 60 MG/0.6 ML SYRINGE SUBCUT SCH ×2 (08:34→22:08)
[2017-10-06] MEDS: HYDROCORTISONE SOD SUCC 100 MG/2 ML VIAL IVP SCH ×2 (08:34→22:07)
[2017-10-06] MEDS: PANTOPRAZOLE SODIUM 40 MG/VIAL (PROTONIX) IVP SCH (08:34)
[2017-10-06] MEDS: CEFEPIME 2 GM in D5W 100 ML IV SCH ×2 (10:57→22:07)
[2017-10-06] MEDS: metroNIDAZOLE 500 mg/NS 100 ML IV SCH ×2 (10:58→22:06)
[2017-10-06] MEDS: ALBUTEROL SULFATE 0.083% 2.5 MG/3 ML VIAL.NEB INH PRN (11:50)
[2017-10-06] MEDS: IPRATROPIUM BROM 0.5 MG/2.5 ML VIAL.NEB (ATROVENT) INH PRN (11:50)
[2017-10-06 12:00] VITALS: BP_SYST 129
[2017-10-06] MEDS: METOPROLOL TARTRATE 5 MG/5 ML VIAL IVP PRN ×2 (12:53→22:25)
[2017-10-06] MEDS: ACETAMINOPHEN 650 MG SUPP.RECT RC PRN (16:05)
[2017-10-06 16:47] VITALS: BP_SYST 135
[2017-10-06] MEDS: FAT EMULSIONS 250 ML IV SCH (17:19)
[2017-10-06] MEDS: POTASSIUM ACETATE IV SCH ×11 (17:23)
[2017-10-06] MEDS: TPN CENTRAL IV SCH ×11 (17:23)
[2017-10-06] MEDS: [UNRECOGNIZED DRUG - OTHER] IV SCH ×11 (17:23)
[2017-10-06] MEDS: SODIUM CHLORIDE IV SCH ×11 (17:23)
[2017-10-06 20:00] VITALS: BP_SYST 143
[2017-10-07] MEDS: levETIRAcetam 1,000 MG in NS 100 ML IV SCH ×4 (00:32→21:05)
[2017-10-07] MEDS: INSULIN ASPART 100 UNITS/ML, 10 ML VIAL (NovoLOG) SUBCUT PRN ×4 (00:58→17:27)
[2017-10-07] MEDS: IPRATROPIUM/ALBUTEROL SULFATE 3 ML AMPUL.NEB INH SCH ×4 (01:14→19:32)
[2017-10-07 06:19] VITALS: BP_SYST 130
[2017-10-07] MEDS: METOPROLOL TARTRATE 5 MG/5 ML VIAL IVP PRN ×2 (06:53→09:38)
[2017-10-07] MEDS: ACETYLCYSTEINE 20% 4 ML VIAL (RT) INH SCH ×3 (07:46→20:02)
[2017-10-07 07:50] VITALS: BP_SYST 137
[2017-10-07 08:17] LABS: BASOPHILS % (AUTO) 0.4 % (0.0-2.0); EOSINOPHILS % (AUTO) 0.8 % (0.0-4.0); HEMOGLOBIN 7.4 g/dL (12.0-16.0); LYMPHOCYTES # (AUTO) 0.5 K/uL (1.0-5.5); LYMPHOCYTES % (AUTO) 18.1 % (20.5-51.5); MEAN CORPUSCULAR HEMOGLOBIN 32 pg (27-31); MEAN CORPUSCULAR HGB CONC 32 % (32-36); MEAN CORPUSCULAR VOLUME 99 fL (79.0-98.0); MONOCYTES # (AUTO) 0.3 K/uL (0.0-1.0); MONOCYTES % (AUTO) 8.6 % (1.7-9.3); NEUTROPHILS # (AUTO) 2.2 K/uL (1.8-7.7); NEUTROPHILS % (AUTO) 72.1 % (40.0-70.0); RED BLOOD CELL COUNT(AUTO) 2.33 MIL/uL (4.2-6.2); RED CELL DISTRIBUTION WIDTH 20.3 % (9.0-15.0)
[2017-10-07 08:22] LABS: PLATELET COUNT (AUTO) 48 K/uL (130-430)
[2017-10-07 08:24] LABS: CALCIUM 8.3 mg/dL (8.4-11.0); CREATININE 0.25 mg/dL (0.55-1.30); PHOSPHORUS 2.4 mg/dL (2.7-4.5)
[2017-10-07] MEDS: ENOXAPARIN SODIUM 60 MG/0.6 ML SYRINGE SUBCUT SCH ×2 (09:00→21:04)
[2017-10-07 09:03] LABS: POTASSIUM 2.9 mmol/L (3.5-5.1)
[2017-10-07] MEDS: metroNIDAZOLE 500 mg/NS 100 ML IV SCH (09:32)
[2017-10-07] MEDS: CEFEPIME 2 GM in D5W 100 ML IV SCH ×2 (09:32→21:02)
[2017-10-07] MEDS: HYDROCORTISONE SOD SUCC 100 MG/2 ML VIAL IVP SCH ×2 (09:34→21:04)
[2017-10-07] MEDS: PANTOPRAZOLE SODIUM 40 MG/VIAL (PROTONIX) IVP SCH (09:38)
[2017-10-07] MEDS ORDERED: POTASSIUM CHLORIDE 40 MEQ in 0.45% NS 250 ML IV ONE (10:15)
[2017-10-07] MEDS: VORICONAZOLE 200 MG in NS 100 ML IV SCH ×2 (11:09→21:02)
[2017-10-07 12:44] VITALS: BP_SYST 132
[2017-10-07] MEDS ORDERED: DIATR MEGLU/DIATRIZ SOD 30 ML SOLUTION PO ONE (15:22)
[2017-10-07 16:58] VITALS: BP_SYST 136
[2017-10-07] MEDS: FAT EMULSIONS 250 ML IV SCH (17:30)
[2017-10-07] MEDS: TPN CENTRAL IV SCH ×11 (17:31)
[2017-10-07] MEDS: POTASSIUM ACETATE IV SCH ×11 (17:31)
[2017-10-07] MEDS: [UNRECOGNIZED DRUG - OTHER] IV SCH ×11 (17:31)
[2017-10-07] MEDS: SODIUM CHLORIDE IV SCH ×11 (17:31)
[2017-10-07 18:36] LABS: CALCIUM 8.3 mg/dL (8.4-11.0); CREATININE 0.27 mg/dL (0.55-1.30); POTASSIUM 3.8 mmol/L (3.5-5.1)
[2017-10-07 20:00] VITALS: BP_SYST 126
[2017-10-08] MEDS: INSULIN ASPART 100 UNITS/ML, 10 ML VIAL (NovoLOG) SUBCUT PRN ×5 (00:20→23:59)
[2017-10-08] MEDS: IPRATROPIUM/ALBUTEROL SULFATE 3 ML AMPUL.NEB INH SCH ×4 (01:06→19:59)
[2017-10-08 02:53] VITALS: BP_SYST 141
[2017-10-08] MEDS: levETIRAcetam 1,000 MG in NS 100 ML IV SCH ×3 (05:57→22:31)
[2017-10-08] MEDS: ENALAPRILAT DIHYDRATE 1.25 MG/ML VIAL IVP PRN ×3 (06:13→23:40)
[2017-10-08] MEDS: ACETYLCYSTEINE 20% 4 ML VIAL (RT) INH SCH ×3 (07:27→20:00)
[2017-10-08 07:53] LABS: BASOPHILS % (AUTO) 0.5 % (0.0-2.0); EOSINOPHILS % (AUTO) 1.4 % (0.0-4.0); HEMATOCRIT 22.6 % (36-48); HEMOGLOBIN 7.4 g/dL (12.0-16.0); LYMPHOCYTES # (AUTO) 0.6 K/uL (1.0-5.5); LYMPHOCYTES % (AUTO) 21.1 % (20.5-51.5); MEAN CORPUSCULAR HEMOGLOBIN 33 pg (27-31); MEAN CORPUSCULAR HGB CONC 33 % (32-36); MEAN CORPUSCULAR VOLUME 99 fL (79.0-98.0); MONOCYTES # (AUTO) 0.3 K/uL (0.0-1.0); MONOCYTES % (AUTO) 10.1 % (1.7-9.3); NEUTROPHILS # (AUTO) 1.8 K/uL (1.8-7.7); NEUTROPHILS % (AUTO) 66.9 % (40.0-70.0); RED BLOOD CELL COUNT(AUTO) 2.28 MIL/uL (4.2-6.2); RED CELL DISTRIBUTION WIDTH 21.8 % (9.0-15.0); WHITE BLOOD COUNT (AUTO) 2.7 K/uL (4.8-10.8)
[2017-10-08 08:19] LABS: CALCIUM 8.1 mg/dL (8.4-11.0); CREATININE 0.24 mg/dL (0.55-1.30); POTASSIUM 3.1 mmol/L (3.5-5.1)
[2017-10-08 08:25] LABS: PHOSPHORUS 2.5 mg/dL (2.7-4.5)
[2017-10-08 08:33] LABS: PLATELET COUNT (AUTO) 41 K/uL (130-430)
[2017-10-08 08:47] VITALS: BP_SYST 154
[2017-10-08] MEDS ORDERED: POTASSIUM CHLORIDE 40 MEQ, LIDOCAINE JECT 2% PF 100 MG 50 MG in NS 250 ML IV ONE (09:00)
[2017-10-08] MEDS: ENOXAPARIN SODIUM 60 MG/0.6 ML SYRINGE SUBCUT SCH ×3 (09:00→21:00)
[2017-10-08] MEDS: VORICONAZOLE 200 MG in NS 100 ML IV SCH ×2 (09:56→23:21)
[2017-10-08] MEDS: HYDROCORTISONE SOD SUCC 100 MG/2 ML VIAL IVP SCH ×2 (09:57→20:49)
[2017-10-08] MEDS: CEFEPIME 2 GM in D5W 100 ML IV SCH ×2 (09:57→20:47)
[2017-10-08] MEDS: PANTOPRAZOLE SODIUM 40 MG/VIAL (PROTONIX) IVP SCH (09:57)
[2017-10-08] MEDS: METOPROLOL TARTRATE 5 MG/5 ML VIAL IVP PRN (11:44)
[2017-10-08 12:15] VITALS: BP_SYST 149
[2017-10-08] MEDS: ALBUTEROL SULFATE 0.083% 2.5 MG/3 ML VIAL.NEB INH PRN (15:07)
[2017-10-08 16:09] VITALS: BP_SYST 152
[2017-10-08] MEDS: FAT EMULSIONS 250 ML IV SCH (18:21)
[2017-10-08] MEDS: SODIUM CHLORIDE IV SCH ×11 (18:26)
[2017-10-08] MEDS: [UNRECOGNIZED DRUG - OTHER] IV SCH ×11 (18:26)
[2017-10-08] MEDS: POTASSIUM ACETATE IV SCH ×11 (18:26)
[2017-10-08] MEDS: TPN CENTRAL IV SCH ×11 (18:26)
[2017-10-08 20:00] VITALS: BP_SYST 152
[2017-10-09] VITALS (7 sets, daily range): BP systolic 144–158
[2017-10-09] MEDS: IPRATROPIUM/ALBUTEROL SULFATE 3 ML AMPUL.NEB INH SCH ×4 (00:48→19:32)
[2017-10-09] MEDS: ACETYLCYSTEINE 20% 4 ML VIAL (RT) INH SCH ×2 (07:00→16:15)
[2017-10-09] MEDS ORDERED: GASTROGRAFIN 120 ML ONE (08:17)
[2017-10-09] MEDS: VORICONAZOLE 200 MG in NS 100 ML IV SCH ×2 (09:00→22:40)
[2017-10-09] MEDS: PANTOPRAZOLE SODIUM 40 MG/VIAL (PROTONIX) IVP SCH (09:00)
[2017-10-09] MEDS: ENOXAPARIN SODIUM 60 MG/0.6 ML SYRINGE SUBCUT SCH ×2 (09:00→22:38)
[2017-10-09] MEDS: CEFEPIME 2 GM in D5W 100 ML IV SCH ×2 (09:00→22:41)
[2017-10-09] MEDS: HYDROCORTISONE SOD SUCC 100 MG/2 ML VIAL IVP SCH ×2 (09:00→22:38)
[2017-10-09] MEDS ORDERED: POTASSIUM CHLORIDE 40 MEQ in NS 250 ML IV ONE (11:30)
[2017-10-09] MEDS: INSULIN ASPART 100 UNITS/ML, 10 ML VIAL (NovoLOG) SUBCUT PRN ×2 (11:38→17:57)
[2017-10-09] MEDS: ENALAPRILAT DIHYDRATE 1.25 MG/ML VIAL IVP PRN ×3 (11:43→23:55)
[2017-10-09 13:10] LABS: BASOPHILS % (AUTO) 0.3 % (0.0-2.0); EOSINOPHILS % (AUTO) 0.3 % (0.0-4.0); HEMATOCRIT 24.4 % (36-48); HEMOGLOBIN 7.9 g/dL (12.0-16.0); LYMPHOCYTES # (AUTO) 0.5 K/uL (1.0-5.5); LYMPHOCYTES % (AUTO) 15.7 % (20.5-51.5); MEAN CORPUSCULAR HEMOGLOBIN 32 pg (27-31); MEAN CORPUSCULAR HGB CONC 33 % (32-36); MEAN CORPUSCULAR VOLUME 99 fL (79.0-98.0); MONOCYTES # (AUTO) 0.2 K/uL (0.0-1.0); MONOCYTES % (AUTO) 6.4 % (1.7-9.3); NEUTROPHILS # (AUTO) 2.4 K/uL (1.8-7.7); NEUTROPHILS % (AUTO) 77.3 % (40.0-70.0); PLATELET COUNT (AUTO) 121 K/uL (130-430); RED BLOOD CELL COUNT(AUTO) 2.46 MIL/uL (4.2-6.2); RED CELL DISTRIBUTION WIDTH 22.2 % (9.0-15.0); WHITE BLOOD COUNT (AUTO) 3.1 K/uL (4.8-10.8)
[2017-10-09] MEDS: levETIRAcetam 1,000 MG in NS 100 ML IV SCH ×3 (14:00→22:37)
[2017-10-09] MEDS: ALBUTEROL SULFATE 0.083% 2.5 MG/3 ML VIAL.NEB INH PRN (16:15)
[2017-10-09 16:25] LABS: CALCIUM 8.6 mg/dL (8.4-11.0); POTASSIUM 3.6 mmol/L (3.5-5.1)
[2017-10-09 16:26] LABS: ALBUMIN 2.3 g/dL (3.4-4.8); CREATININE 0.41 mg/dL (0.55-1.30); PHOSPHORUS 3.2 mg/dL (2.7-4.5); TOTAL BILIRUBIN 0.5 mg/dL (0.0-1.0)
[2017-10-09] MEDS: FAT EMULSIONS 250 ML IV SCH (17:58)
[2017-10-09] MEDS: TPN CENTRAL IV SCH ×11 (17:59)
[2017-10-09] MEDS: SODIUM CHLORIDE IV SCH ×11 (17:59)
[2017-10-09] MEDS: [UNRECOGNIZED DRUG - OTHER] IV SCH ×11 (17:59)
[2017-10-09] MEDS: POTASSIUM ACETATE IV SCH ×11 (17:59)
[2017-10-09] MEDS: METOPROLOL TARTRATE 5 MG/5 ML VIAL IVP PRN (22:40)
[2017-10-09] MEDS ORDERED: ENALAPRILAT DIHYDRATE 1.25 MG/ML VIAL ONE (23:52)
[2017-10-10] VITALS: BP_SYST 157
[2017-10-10] MEDS: INSULIN ASPART 100 UNITS/ML, 10 ML VIAL (NovoLOG) SUBCUT PRN ×4 (00:35→18:01)
[2017-10-10 01:04] VITALS: BP_SYST 119
[2017-10-10] MEDS: IPRATROPIUM/ALBUTEROL SULFATE 3 ML AMPUL.NEB INH SCH ×4 (01:06→19:50)
[2017-10-10] MEDS: ACETYLCYSTEINE 20% 4 ML VIAL (RT) INH SCH ×4 (01:09→20:16)
[2017-10-10] MEDS: METOPROLOL TARTRATE 5 MG/5 ML VIAL IVP PRN ×3 (06:08→21:44)
[2017-10-10] MEDS: levETIRAcetam 1,000 MG in NS 100 ML IV SCH ×3 (06:19→21:49)
[2017-10-10] MEDS: ENALAPRILAT DIHYDRATE 1.25 MG/ML VIAL IVP PRN ×4 (06:21→21:42)
[2017-10-10 07:15] LABS: CALCIUM 8.6 mg/dL (8.4-11.0); CREATININE 0.29 mg/dL (0.55-1.30); POTASSIUM 3.1 mmol/L (3.5-5.1)
[2017-10-10 07:23] LABS: PHOSPHORUS 2.9 mg/dL (2.7-4.5)
[2017-10-10 08:00] VITALS: BP_SYST 170
[2017-10-10 08:00] LABS: HEMATOCRIT 23.9 % (36-48); HEMOGLOBIN 8.2 g/dL (12.0-16.0); MEAN CORPUSCULAR HEMOGLOBIN 34 pg (27-31); MEAN CORPUSCULAR HGB CONC 34 % (32-36); MEAN CORPUSCULAR VOLUME 99 fL (79.0-98.0); PLATELET COUNT (AUTO) 135 K/uL (130-430); RED BLOOD CELL COUNT(AUTO) 2.42 MIL/uL (4.2-6.2)
[2017-10-10] MEDS: cloNIDine HCL 0.2 MG/24 HR PATCH.TDWK TD SCH ×2 (09:00→12:33)
[2017-10-10] MEDS: CEFEPIME 2 GM in D5W 100 ML IV SCH ×2 (09:28→21:52)
[2017-10-10] MEDS: PANTOPRAZOLE SODIUM 40 MG/VIAL (PROTONIX) IVP SCH (09:29)
[2017-10-10] MEDS: HYDROCORTISONE SOD SUCC 100 MG/2 ML VIAL IVP SCH ×2 (09:30→21:47)
[2017-10-10] MEDS: ENOXAPARIN SODIUM 60 MG/0.6 ML SYRINGE SUBCUT SCH ×2 (09:31→21:51)
[2017-10-10] MEDS: VORICONAZOLE 200 MG in NS 100 ML IV SCH ×2 (10:32→21:53)
[2017-10-10 12:32] LABS: CORRECTED WHITE BLOOD COUNT 4.5 K/uL (4.5-11.0)
[2017-10-10 12:33] LABS: BAND % (MANUAL) 3 % (0-6); BASOPHILS % (MANUAL) 0 % (0-2); EOSINOPHILS % (MANUAL) 1 % (0-7); LYMPHOCYTES % (MANUAL) 21 % (20-46); METAMYELOCYTES % 2 % (0-0); MONOCYTES % (MANUAL) 10 % (0-11)
[2017-10-10] MEDS ORDERED: POTASSIUM CHLORIDE 40 MEQ, LIDOCAINE JECT 2% PF 100 MG 50 MG in NS 250 ML IV ONE (12:45)
[2017-10-10 13:30] VITALS: BP_SYST 158
[2017-10-10 17:03] VITALS: BP_SYST 151
[2017-10-10] MEDS: FAT EMULSIONS 250 ML IV SCH (18:02)
[2017-10-10] MEDS: SODIUM CHLORIDE IV SCH ×11 (18:14)
[2017-10-10] MEDS: [UNRECOGNIZED DRUG - OTHER] IV SCH ×11 (18:14)
[2017-10-10] MEDS: POTASSIUM ACETATE IV SCH ×11 (18:14)
[2017-10-10] MEDS: TPN CENTRAL IV SCH ×11 (18:14)
[2017-10-10 20:00] VITALS: BP_SYST 157
[2017-10-10 22:42] LABS: ANION GAP 10 (5-15); CHLORIDE 115 mmol/L (98-107); GLUCOSE 266 mg/dL (70-99); POTASSIUM 4.1 mmol/L (3.5-5.1); SODIUM SERUM 151 mmol/L (136-145); UREA NITROGEN, BLOOD 10 mg/dL (8-21)
[2017-10-10 22:43] LABS: CREATININE < 0.20 mg/dL (0.55-1.30); GFR AFRICAN AMERICAN 482 mL/min (>90)
[2017-10-11] MEDS: INSULIN ASPART 100 UNITS/ML, 10 ML VIAL (NovoLOG) SUBCUT PRN ×4 (00:46→18:05)
[2017-10-11] MEDS: IPRATROPIUM/ALBUTEROL SULFATE 3 ML AMPUL.NEB INH SCH ×5 (01:36→20:41)
[2017-10-11 02:00] VITALS: BP_SYST 161
[2017-10-11] MEDS: ENALAPRILAT DIHYDRATE 1.25 MG/ML VIAL IVP PRN ×2 (02:50→13:59)
[2017-10-11] MEDS: METOPROLOL TARTRATE 5 MG/5 ML VIAL IVP PRN ×2 (02:52→14:10)
[2017-10-11] MEDS: levETIRAcetam 1,000 MG in NS 100 ML IV SCH ×2 (05:57→14:12)
[2017-10-11 07:19] LABS: HEMATOCRIT 25.4 % (36-48); HEMOGLOBIN 8.2 g/dL (12.0-16.0); MEAN CORPUSCULAR HEMOGLOBIN 32 pg (27-31); MEAN CORPUSCULAR HGB CONC 32 % (32-36); MEAN CORPUSCULAR VOLUME 100 fL (79.0-98.0); PLATELET COUNT (AUTO) 88 K/uL (130-430); RED BLOOD CELL COUNT(AUTO) 2.54 MIL/uL (4.2-6.2); WHITE BLOOD COUNT (AUTO) 4.6 K/uL (4.8-10.8)
[2017-10-11 07:27] LABS: CALCIUM 8.8 mg/dL (8.4-11.0); CREATININE 0.24 mg/dL (0.55-1.30); PHOSPHORUS 2.9 mg/dL (2.7-4.5); POTASSIUM 3.1 mmol/L (3.5-5.1)
[2017-10-11] MEDS: ACETYLCYSTEINE 20% 4 ML VIAL (RT) INH SCH ×3 (07:50→20:36)
[2017-10-11 08:00] VITALS: BP_SYST 158
[2017-10-11] MEDS: ENOXAPARIN SODIUM 60 MG/0.6 ML SYRINGE SUBCUT SCH ×2 (08:48→21:07)
[2017-10-11] MEDS: CEFEPIME 2 GM in D5W 100 ML IV SCH ×2 (08:48→21:07)
[2017-10-11] MEDS: HYDROCORTISONE SOD SUCC 100 MG/2 ML VIAL IVP SCH ×2 (08:48→22:36)
[2017-10-11] MEDS: PANTOPRAZOLE SODIUM 40 MG/VIAL (PROTONIX) IVP SCH (08:58)
[2017-10-11 09:28] LABS: BASOPHILS % (MANUAL) 0 % (0-2); CORRECTED WHITE BLOOD COUNT 4.3 K/uL (4.5-11.0); EOSINOPHILS % (MANUAL) 0 % (0-7); LYMPHOCYTES % (MANUAL) 9 % (20-46); MONOCYTES % (MANUAL) 3 % (0-11)
[2017-10-11] MEDS: VORICONAZOLE 200 MG in NS 100 ML IV SCH ×2 (10:07→22:36)
[2017-10-11 12:52] VITALS: BP_SYST 148
[2017-10-11] MEDS ORDERED: POTASSIUM CHLORIDE 40 MEQ, LIDOCAINE JECT 2% PF 100 MG 50 MG in NS 250 ML IV ONE (15:00)
[2017-10-11 17:04] VITALS: BP_SYST 154
[2017-10-11] MEDS ORDERED: [UNRECOGNIZED DRUG - OTHER] IV SCH ×11 (18:00)
[2017-10-11] MEDS ORDERED: POTASSIUM ACETATE IV SCH ×11 (18:00)
[2017-10-11] MEDS ORDERED: SODIUM CHLORIDE IV SCH ×11 (18:00)
[2017-10-11] MEDS ORDERED: TPN CENTRAL IV SCH ×11 (18:00)
[2017-10-11] MEDS: FAT EMULSIONS 250 ML IV SCH (18:06)
[2017-10-12 00:20] VITALS: BP_SYST 145
[2017-10-12] MEDS: IPRATROPIUM/ALBUTEROL SULFATE 3 ML AMPUL.NEB INH SCH ×4 (00:21→20:01)
[2017-10-12] MEDS: levETIRAcetam 1,000 MG in NS 100 ML IV SCH ×3 (00:49→15:16)
[2017-10-12] MEDS: INSULIN ASPART 100 UNITS/ML, 10 ML VIAL (NovoLOG) SUBCUT PRN ×4 (01:06→18:10)
[2017-10-12 07:06] LABS: HEMATOCRIT 28.9 % (36-48); HEMOGLOBIN 9.3 g/dL (12.0-16.0); MEAN CORPUSCULAR HEMOGLOBIN 32 pg (27-31); MEAN CORPUSCULAR HGB CONC 32 % (32-36); MEAN CORPUSCULAR VOLUME 101 fL (79.0-98.0); PLATELET COUNT (AUTO) 68 K/uL (130-430); RED BLOOD CELL COUNT(AUTO) 2.87 MIL/uL (4.2-6.2); RED CELL DISTRIBUTION WIDTH 22.3 % (9.0-15.0); WHITE BLOOD COUNT (AUTO) 5.7 K/uL (4.8-10.8)
[2017-10-12 07:20] LABS: CALCIUM 9.2 mg/dL (8.4-11.0); CREATININE 0.29 mg/dL (0.55-1.30); POTASSIUM 3.8 mmol/L (3.5-5.1)
[2017-10-12] MEDS: ACETYLCYSTEINE 20% 4 ML VIAL (RT) INH SCH ×3 (07:37→20:01)
[2017-10-12 08:00] VITALS: BP_SYST 149
[2017-10-12] MEDS: VORICONAZOLE 200 MG in NS 100 ML IV SCH ×2 (09:45→21:04)
[2017-10-12] MEDS: CEFEPIME 2 GM in D5W 100 ML IV SCH ×2 (09:45→23:20)
[2017-10-12] MEDS: ENOXAPARIN SODIUM 60 MG/0.6 ML SYRINGE SUBCUT SCH ×2 (09:48→21:05)
[2017-10-12] MEDS: PANTOPRAZOLE SODIUM 40 MG/VIAL (PROTONIX) IVP SCH (09:48)
[2017-10-12] MEDS: HYDROCORTISONE SOD SUCC 100 MG/2 ML VIAL IVP SCH ×2 (09:49→21:05)
[2017-10-12 09:54] LABS: CORRECTED WHITE BLOOD COUNT 5.2 K/uL (4.5-11.0)
[2017-10-12 09:55] LABS: BASOPHILS % (MANUAL) 0 % (0-2); EOSINOPHILS % (MANUAL) 1 % (0-7); LYMPHOCYTES % (MANUAL) 16 % (20-46); MONOCYTES % (MANUAL) 10 % (0-11)
[2017-10-12] MEDS: ENALAPRILAT DIHYDRATE 1.25 MG/ML VIAL IVP PRN (10:00)
[2017-10-12] MEDS: METOPROLOL TARTRATE 5 MG/5 ML VIAL IVP PRN (10:01)
[2017-10-12 11:25] VITALS: BP_SYST 151
[2017-10-12 11:55] LABS: ALBUMIN 2.5 g/dL (3.4-4.8); PHOSPHORUS 3.5 mg/dL (2.7-4.5)
[2017-10-12 14:55] VITALS: BP_SYST 151
[2017-10-12 15:47] VITALS: BP_SYST 143
[2017-10-12] MEDS: FAT EMULSIONS 250 ML IV SCH (17:36)
[2017-10-12] MEDS ORDERED: K PHOS IV SCH ×10 (18:00)
[2017-10-12] MEDS ORDERED: TPN CENTRAL IV SCH ×10 (18:00)
[2017-10-12] MEDS ORDERED: POTASSIUM ACETATE IV SCH ×10 (18:00)
[2017-10-12] MEDS ORDERED: SODIUM CHLORIDE IV SCH ×10 (18:00)
[2017-10-12] MEDS ORDERED: [UNRECOGNIZED DRUG - OTHER] IV SCH ×10 (18:00)
[2017-10-12 20:00] VITALS: BP_SYST 150
[2017-10-13] MEDS: INSULIN ASPART 100 UNITS/ML, 10 ML VIAL (NovoLOG) SUBCUT PRN ×5 (00:40→23:44)
[2017-10-13] MEDS: levETIRAcetam 1,000 MG in NS 100 ML IV SCH ×3 (00:43→15:36)
[2017-10-13 00:44] VITALS: BP_SYST 151
[2017-10-13] MEDS: IPRATROPIUM/ALBUTEROL SULFATE 3 ML AMPUL.NEB INH SCH ×4 (00:57→19:59)
[2017-10-13 07:29] LABS: BASOPHILS % (AUTO) 0.2 % (0.0-2.0); EOSINOPHILS % (AUTO) 0.6 % (0.0-4.0); HEMATOCRIT 27.9 % (36-48); HEMOGLOBIN 8.9 g/dL (12.0-16.0); LYMPHOCYTES # (AUTO) 0.9 K/uL (1.0-5.5); LYMPHOCYTES % (AUTO) 17.3 % (20.5-51.5); MEAN CORPUSCULAR HEMOGLOBIN 32 pg (27-31); MEAN CORPUSCULAR HGB CONC 32 % (32-36); MEAN CORPUSCULAR VOLUME 101 fL (79.0-98.0); MONOCYTES # (AUTO) 0.3 K/uL (0.0-1.0); MONOCYTES % (AUTO) 5.4 % (1.7-9.3); NEUTROPHILS # (AUTO) 3.8 K/uL (1.8-7.7); NEUTROPHILS % (AUTO) 76.5 % (40.0-70.0); PLATELET COUNT (AUTO) 57 K/uL (130-430); RED BLOOD CELL COUNT(AUTO) 2.75 MIL/uL (4.2-6.2); RED CELL DISTRIBUTION WIDTH 22.7 % (9.0-15.0)
[2017-10-13] MEDS: ACETYLCYSTEINE 20% 4 ML VIAL (RT) INH SCH ×3 (07:35→20:01)
[2017-10-13 07:57] LABS: ALBUMIN 2.3 g/dL (3.4-4.8); CALCIUM 9.1 mg/dL (8.4-11.0); CREATININE 0.25 mg/dL (0.55-1.30); PHOSPHORUS 3.4 mg/dL (2.7-4.5); TOTAL BILIRUBIN 0.6 mg/dL (0.0-1.0)
[2017-10-13 08:20] VITALS: BP_SYST 144
[2017-10-13] MEDS: HYDROCORTISONE SOD SUCC 100 MG/2 ML VIAL IVP SCH ×2 (08:35→21:32)
[2017-10-13] MEDS: CEFEPIME 2 GM in D5W 100 ML IV SCH ×2 (08:35→23:32)
[2017-10-13] MEDS: METOPROLOL TARTRATE 5 MG/5 ML VIAL IVP PRN ×2 (08:36→21:54)
[2017-10-13] MEDS: ENOXAPARIN SODIUM 60 MG/0.6 ML SYRINGE SUBCUT SCH ×2 (08:37→21:32)
[2017-10-13] MEDS: PANTOPRAZOLE SODIUM 40 MG/VIAL (PROTONIX) IVP SCH (08:37)
[2017-10-13 08:52] LABS: POTASSIUM 2.7 mmol/L (3.5-5.1)
[2017-10-13] MEDS ORDERED: POTASSIUM CHLORIDE 60 MEQ, LIDOCAINE JECT 2% PF 100 MG 75 MG in NS 500 ML IV ONE (10:00)
[2017-10-13] MEDS: VORICONAZOLE 200 MG in NS 100 ML IV SCH ×2 (10:09→21:32)
[2017-10-13 12:54] VITALS: BP_SYST 131
[2017-10-13 16:44] VITALS: BP_SYST 143
[2017-10-13] MEDS: FAT EMULSIONS 250 ML IV SCH (18:04)
[2017-10-13] MEDS: POTASSIUM ACETATE IV SCH ×11 (18:19)
[2017-10-13] MEDS: K PHOS IV SCH ×11 (18:19)
[2017-10-13] MEDS: SODIUM CHLORIDE IV SCH ×11 (18:19)
[2017-10-13] MEDS: TPN CENTRAL IV SCH ×11 (18:19)
[2017-10-13] MEDS: [UNRECOGNIZED DRUG - OTHER] IV SCH ×11 (18:19)
[2017-10-13 20:00] VITALS: BP_SYST 159
[2017-10-13] MEDS: ENALAPRILAT DIHYDRATE 1.25 MG/ML VIAL IVP PRN (22:01)
[2017-10-14] VITALS (7 sets, daily range): BP systolic 145–167
[2017-10-14] MEDS: levETIRAcetam 1,000 MG in NS 100 ML IV SCH ×3 (00:27→14:13)
[2017-10-14] MEDS: IPRATROPIUM/ALBUTEROL SULFATE 3 ML AMPUL.NEB INH SCH ×4 (01:06→19:53)
[2017-10-14] MEDS: METOPROLOL TARTRATE 5 MG/5 ML VIAL IVP PRN ×3 (05:08→20:36)
[2017-10-14] MEDS: ENALAPRILAT DIHYDRATE 1.25 MG/ML VIAL IVP PRN ×2 (05:09→20:36)
[2017-10-14] MEDS: INSULIN ASPART 100 UNITS/ML, 10 ML VIAL (NovoLOG) SUBCUT PRN ×3 (05:20→17:28)
[2017-10-14 07:31] LABS: BASOPHILS % (AUTO) 0.5 % (0.0-2.0); EOSINOPHILS % (AUTO) 0.7 % (0.0-4.0); HEMATOCRIT 26.9 % (36-48); HEMOGLOBIN 8.5 g/dL (12.0-16.0); LYMPHOCYTES # (AUTO) 0.8 K/uL (1.0-5.5); LYMPHOCYTES % (AUTO) 16.6 % (20.5-51.5); MEAN CORPUSCULAR HEMOGLOBIN 32 pg (27-31); MEAN CORPUSCULAR HGB CONC 32 % (32-36); MEAN CORPUSCULAR VOLUME 100 fL (79.0-98.0); MONOCYTES # (AUTO) 0.3 K/uL (0.0-1.0); MONOCYTES % (AUTO) 5.5 % (1.7-9.3); NEUTROPHILS # (AUTO) 3.7 K/uL (1.8-7.7); NEUTROPHILS % (AUTO) 76.7 % (40.0-70.0); PLATELET COUNT (AUTO) 55 K/uL (130-430); RED BLOOD CELL COUNT(AUTO) 2.68 MIL/uL (4.2-6.2); RED CELL DISTRIBUTION WIDTH 22.3 % (9.0-15.0); WHITE BLOOD COUNT (AUTO) 4.8 K/uL (4.8-10.8)
[2017-10-14 07:54] LABS: ANION GAP 6 (5-15); CALCIUM 8.9 mg/dL (8.4-11.0); CHLORIDE 106 mmol/L (98-107); GLUCOSE 226 mg/dL (70-99); POTASSIUM 3.2 mmol/L (3.5-5.1); SODIUM SERUM 138 mmol/L (136-145); UREA NITROGEN, BLOOD 12 mg/dL (8-21)
[2017-10-14] MEDS: ACETYLCYSTEINE 20% 4 ML VIAL (RT) INH SCH ×3 (08:25→19:54)
[2017-10-14 08:27] LABS: CREATININE < 0.20 mg/dL (0.55-1.30); GFR AFRICAN AMERICAN 482 mL/min (>90)
[2017-10-14] MEDS: PANTOPRAZOLE SODIUM 40 MG/VIAL (PROTONIX) IVP SCH (08:52)
[2017-10-14] MEDS: HYDROCORTISONE SOD SUCC 100 MG/2 ML VIAL IVP SCH ×2 (08:52→20:23)
[2017-10-14] MEDS: ENOXAPARIN SODIUM 60 MG/0.6 ML SYRINGE SUBCUT SCH ×2 (09:00→20:23)
[2017-10-14] MEDS ORDERED: POTASSIUM CHLORIDE 40 MEQ in NS 250 ML IV ONE (09:30)
[2017-10-14] MEDS: CEFEPIME 2 GM in D5W 100 ML IV SCH ×2 (10:25→20:43)
[2017-10-14] MEDS: VORICONAZOLE 200 MG in NS 100 ML IV SCH ×2 (11:49→22:43)
[2017-10-14] MEDS: K PHOS IV SCH ×11 (17:38)
[2017-10-14] MEDS: [UNRECOGNIZED DRUG - OTHER] IV SCH ×11 (17:38)
[2017-10-14] MEDS: SODIUM CHLORIDE IV SCH ×11 (17:38)
[2017-10-14] MEDS: TPN CENTRAL IV SCH ×11 (17:38)
[2017-10-14] MEDS: POTASSIUM ACETATE IV SCH ×11 (17:38)
[2017-10-14] MEDS: FAT EMULSIONS 250 ML IV SCH (17:44)
[2017-10-15] MEDS: INSULIN ASPART 100 UNITS/ML, 10 ML VIAL (NovoLOG) SUBCUT PRN ×5 (00:08→23:59)
[2017-10-15] MEDS: IPRATROPIUM/ALBUTEROL SULFATE 3 ML AMPUL.NEB INH SCH ×4 (01:00→19:44)
[2017-10-15] MEDS: levETIRAcetam 1,000 MG in NS 100 ML IV SCH ×4 (01:20→23:55)
[2017-10-15] MEDS: ENALAPRILAT DIHYDRATE 1.25 MG/ML VIAL IVP PRN ×2 (05:50→14:21)
[2017-10-15 07:57] LABS: ALANINE AMINOTRANSFERASE 39 U/L (12-78); ALBUMIN 2.3 g/dL (3.4-4.8); ANION GAP 9 (5-15); ASPARTATE AMINOTRANSFERASE 36 U/L (10-37); CALCIUM 9.2 mg/dL (8.4-11.0); CHLORIDE 109 mmol/L (98-107); GLUCOSE 168 mg/dL (70-99); POTASSIUM 3.3 mmol/L (3.5-5.1); SODIUM SERUM 145 mmol/L (136-145); TOTAL BILIRUBIN 0.8 mg/dL (0.0-1.0); UREA NITROGEN, BLOOD 12 mg/dL (8-21)
[2017-10-15 08:11] LABS: HEMATOCRIT 27.9 % (36-48); HEMOGLOBIN 8.7 g/dL (12.0-16.0); MEAN CORPUSCULAR HEMOGLOBIN 32 pg (27-31); MEAN CORPUSCULAR HGB CONC 31 % (32-36); MEAN CORPUSCULAR VOLUME 102 fL (79.0-98.0); RED BLOOD CELL COUNT(AUTO) 2.74 MIL/uL (4.2-6.2); RED CELL DISTRIBUTION WIDTH 21.9 % (9.0-15.0); WHITE BLOOD COUNT (AUTO) 6.3 K/uL (4.8-10.8)
[2017-10-15 08:14] VITALS: BP_SYST 127
[2017-10-15 08:29] LABS: CREATININE < 0.20 mg/dL (0.55-1.30); GFR AFRICAN AMERICAN 482 mL/min (>90)
[2017-10-15] MEDS: CEFEPIME 2 GM in D5W 100 ML IV SCH ×2 (08:35→22:59)
[2017-10-15] MEDS: HYDROCORTISONE SOD SUCC 100 MG/2 ML VIAL IVP SCH ×2 (08:35→20:43)
[2017-10-15] MEDS: PANTOPRAZOLE SODIUM 40 MG/VIAL (PROTONIX) IVP SCH (08:35)
[2017-10-15] MEDS: ENOXAPARIN SODIUM 60 MG/0.6 ML SYRINGE SUBCUT SCH ×2 (08:36→20:43)
[2017-10-15] MEDS: METOPROLOL TARTRATE 5 MG/5 ML VIAL IVP PRN ×3 (08:50→20:52)
[2017-10-15 08:55] LABS: PLATELET COUNT (AUTO) 44 K/uL (130-430)
[2017-10-15] MEDS: ACETYLCYSTEINE 20% 4 ML VIAL (RT) INH SCH ×3 (09:18→19:44)
[2017-10-15] MEDS ORDERED: POTASSIUM CHLORIDE 40 MEQ, LIDOCAINE JECT 2% PF 100 MG 50 MG in NS 250 ML IV ONE (10:00)
[2017-10-15] MEDS: VORICONAZOLE 200 MG in NS 100 ML IV SCH (10:26)
[2017-10-15 10:45] LABS: EOSINOPHILS % (MANUAL) 0 % (0-7); LYMPHOCYTES % (MANUAL) 14 % (20-46); MONOCYTES % (MANUAL) 2 % (0-11)
[2017-10-15 10:46] LABS: BASOPHILS % (MANUAL) 0 % (0-2)
[2017-10-15 12:24] VITALS: BP_SYST 147
[2017-10-15 16:44] VITALS: BP_SYST 147
[2017-10-15] MEDS ORDERED: SODIUM CHLORIDE IV SCH ×10 (18:00)
[2017-10-15] MEDS ORDERED: POTASSIUM ACETATE IV SCH ×10 (18:00)
[2017-10-15] MEDS ORDERED: [UNRECOGNIZED DRUG - OTHER] IV SCH ×10 (18:00)
[2017-10-15] MEDS ORDERED: TPN CENTRAL IV SCH ×10 (18:00)
[2017-10-15] MEDS ORDERED: K PHOS IV SCH ×10 (18:00)
[2017-10-15] MEDS: FAT EMULSIONS 250 ML IV SCH (18:03)
[2017-10-15 20:00] VITALS: BP_SYST 137
[2017-10-16] MEDS: IPRATROPIUM/ALBUTEROL SULFATE 3 ML AMPUL.NEB INH SCH ×4 (00:28→20:06)
[2017-10-16 00:32] VITALS: BP_SYST 148
[2017-10-16] MEDS: VORICONAZOLE 200 MG in NS 100 ML IV SCH ×2 (01:11→10:10)
[2017-10-16] MEDS: ENALAPRILAT DIHYDRATE 1.25 MG/ML VIAL IVP PRN ×2 (02:06→15:09)
[2017-10-16] MEDS: levETIRAcetam 1,000 MG in NS 100 ML IV SCH ×2 (05:54→14:19)
[2017-10-16] MEDS: ACETYLCYSTEINE 20% 4 ML VIAL (RT) INH SCH ×2 (07:21→15:51)
[2017-10-16 07:25] VITALS: BP_SYST 143
[2017-10-16 07:38] LABS: ANION GAP 9 (5-15); CALCIUM 9.4 mg/dL (8.4-11.0); CHLORIDE 107 mmol/L (98-107); GLUCOSE 109 mg/dL (70-99); SODIUM SERUM 143 mmol/L (136-145); UREA NITROGEN, BLOOD 10 mg/dL (8-21)
[2017-10-16 07:45] LABS: HEMATOCRIT 27.7 % (36-48); HEMOGLOBIN 8.9 g/dL (12.0-16.0); MEAN CORPUSCULAR HEMOGLOBIN 32 pg (27-31); MEAN CORPUSCULAR HGB CONC 32 % (32-36); MEAN CORPUSCULAR VOLUME 100 fL (79.0-98.0); PLATELET COUNT (AUTO) 122 K/uL (130-430); RED BLOOD CELL COUNT(AUTO) 2.75 MIL/uL (4.2-6.2); WHITE BLOOD COUNT (AUTO) 4.9 K/uL (4.8-10.8)
[2017-10-16 08:16] LABS: CREATININE < 0.20 mg/dL (0.55-1.30); GFR AFRICAN AMERICAN 482 mL/min (>90)
[2017-10-16 08:18] LABS: POTASSIUM 2.8 mmol/L (3.5-5.1)
[2017-10-16] MEDS: HYDROCORTISONE SOD SUCC 100 MG/2 ML VIAL IVP SCH (08:45)
[2017-10-16] MEDS: CEFEPIME 2 GM in D5W 100 ML IV SCH (08:45)
[2017-10-16] MEDS: PANTOPRAZOLE SODIUM 40 MG/VIAL (PROTONIX) IVP SCH (08:45)
[2017-10-16] MEDS: ENOXAPARIN SODIUM 60 MG/0.6 ML SYRINGE SUBCUT SCH (08:46)
[2017-10-16] MEDS: METOPROLOL TARTRATE 5 MG/5 ML VIAL IVP PRN ×2 (08:57→18:45)
[2017-10-16 09:00] LABS: BASOPHILS % (MANUAL) 0 % (0-2); EOSINOPHILS % (MANUAL) 1 % (0-7); LYMPHOCYTES % (MANUAL) 13 % (20-46); MONOCYTES % (MANUAL) 4 % (0-11)
[2017-10-16] MEDS ORDERED: POTASSIUM CHLORIDE 40 MEQ, LIDOCAINE JECT 2% PF 100 MG 50 MG in NS 250 ML IV ONE (09:45)
[2017-10-16] MEDS: INSULIN ASPART 100 UNITS/ML, 10 ML VIAL (NovoLOG) SUBCUT PRN ×2 (11:41→18:00)
[2017-10-16 12:22] VITALS: BP_SYST 140
[2017-10-16] MEDS: IPRATROPIUM BROM 0.5 MG/2.5 ML VIAL.NEB (ATROVENT) INH PRN (15:51)
[2017-10-16 16:30] VITALS: BP_SYST 132
[2017-10-16] MEDS ORDERED: POTASSIUM ACETATE IV SCH ×10 (18:00)
[2017-10-16] MEDS ORDERED: K PHOS IV SCH ×10 (18:00)
[2017-10-16] MEDS: FAT EMULSIONS 250 ML IV SCH (18:00)
[2017-10-16] MEDS ORDERED: TPN CENTRAL IV SCH ×10 (18:00)
[2017-10-16] MEDS ORDERED: SODIUM CHLORIDE IV SCH ×10 (18:00)
[2017-10-16] MEDS ORDERED: [UNRECOGNIZED DRUG - OTHER] IV SCH ×10 (18:00)
[2017-10-16 19:24] VITALS: BP_SYST 135
[2017-10-16 20:00] VITALS: BP_SYST 143
== END 2017-10-16 21:10 | DRG 871 ==
LOC: SED 05:05 → SIC 07:44 → STU 09-26 15:45
PROVIDERS: ADMIT Internal Medicine; ATTEND Internal Medicine
PROC: 3E0336Z Introduction of Nutritional Substance into Peripheral Vein, Percutaneous Approach (ICD-10-PCS; 2017-09-27)
PROC: 30233R1 Transfusion of Nonautologous Platelets into Peripheral Vein, Percutaneous Approach (ICD-10-PCS; principal; 2017-10-01)
DX: A41.9 Sepsis, unspecified organism (principal); J96.01 Acute respiratory failure with hypoxia; I26.99 Other pulmonary embolism without acute cor pulmonale; J69.0 Pneumonitis due to inhalation of food and vomit; G93.40 Encephalopathy, unspecified; E43 Unspecified severe protein-calorie malnutrition; K63.1 Perforation of intestine (nontraumatic); K55.9 Vascular disorder of intestine, unspecified; K65.9 Peritonitis, unspecified; E87.1 Hypo-osmolality and hyponatremia; G81.94 Hemiplegia, unspecified affecting left nondominant side; N39.0 Urinary tract infection, site not specified; Z68.1 Body mass index [BMI] 19.9 or less, adult; Z94.84 Stem cells transplant status; K63.89 Other specified diseases of intestine; E87.6 Hypokalemia; D69.59 Other secondary thrombocytopenia; D64.9 Anemia, unspecified; E03.9 Hypothyroidism, unspecified; Z16.12 Extended spectrum beta lactamase (ESBL) resistance; G40.909 Epilepsy, unspecified, not intractable, without status epilepticus; I10 Essential (primary) hypertension; H54.7 Unspecified visual loss; Z66 Do not resuscitate; Z51.5 Encounter for palliative care; Z92.21 Personal history of antineoplastic chemotherapy; Z86.718 Personal history of other venous thrombosis and embolism; Z93.1 Gastrostomy status; Z92.3 Personal history of irradiation; Z91.018 Allergy to other foods; Z91.013 Allergy to seafood
CPT/HCPCS: 36415; 36600; 71010; 71045; 71275; 74000-TC; 74240-TC; 80048; 80053; 80076; 81000-TC; 82040-TC; 82803-TC; 82962; 83605; 83690-TC; 83735-TC; 83880; 84100-TC; 84478-TC; 84484; 85007; 85025; 85027; 85379; 86710; 86886; 86900; 86901; 87040-TC; 87081; 87086; 93005; 94640; 94760; 96365; 99285; C9113; J0610; J0692; J1580; J1650; J1720; J1815; J1953; J2060; J2270; J2543; J3465; J3475; J3480; J3490; J7030; J7040; J7050; J7060; J7131; P9034; Q9963; Q9964; Q9967